=== PATIENT | male | born 1960 | race Caucasian/White ===

== ENCOUNTER 2017-02-22 11:35 | Inpatient (IN) | payer OTHER ==
[~2017-02-22] VITALS: Ht 162.6 cm; Wt 88.3 kg
[2017-02-22] VITALS (9 sets, daily range): BP systolic 102–115; BP diastolic 56–62; PULSE 65–75; RESP 16–20; TEMP 97.8–98.4; O2SAT 97–100
[~2017-02-22 11:35] MED LIST: ALPR.25 PO; ATOR10 PO; FURO20 PO; LORTA5 PO; MAGN400 PO; OMEP20TA39 PO; SPIR50 PO; TAB-TAB PO
[2017-02-22] MEDS ORDERED: SPIR50TA PO (11:59)
[2017-02-22] MEDS ORDERED: VITA500T49 PO (11:59)
[2017-02-22] MEDS ORDERED: HYDR-3516 PO (11:59)
[2017-02-22] MEDS ORDERED: POTA595T PO (11:59)
[2017-02-22] MEDS ORDERED: POTA10TA8 PO (11:59)
[2017-02-22] MEDS ORDERED: LACT10SO PO (11:59)
[2017-02-22] MEDS ORDERED: PROP10TA6 PO (11:59)
[2017-02-22] MEDS ORDERED: TEMA15CA PO (11:59)
[2017-02-22] MEDS ORDERED: MULTTAB67 PO (11:59)
[2017-02-22] MEDS ORDERED: OMEP40CA2 PO (11:59)
[2017-02-22] MEDS ORDERED: FURO1TAB60 PO (11:59)
[2017-02-22 12:27] LABS: BASOPHIL # 0.1 TH/MM3 (0-0.2); BASOPHIL % 1.1 % (0.0-2.0); EOSINOPHIL # 0.1 TH/MM3 (0-0.4); EOSINOPHIL % 2.6 % (0.0-4.0); HEMATOCRIT 23.4 % (39.0-51.0); LYMPHOCYTE # 1.4 TH/MM3 (1.0-4.8); MEAN CELL VOLUME 65.5 FL (80.0-100.0); MEAN CORPUSCULAR HEMOGLOBIN 20.1 PG (27.0-34.0); MEAN CORPUSCULAR HGB CONC 30.8 % (32.0-36.0); MONO % 10.6 % (0.0-8.0); NEUT % 58.7 % (16.0-70.0); PLATELET COUNT 137 TH/MM3 (150-450); RED BLOOD COUNT 3.57 MIL/MM3 (4.50-5.90); RED CELL DISTRIBUTION WIDTH 20.5 % (11.6-17.2); WHITE BLOOD COUNT 5.1 TH/MM3 (4.0-11.0)
[2017-02-22 12:28] LABS: HEMO FLAGS AUTO DIFF
[2017-02-22 12:29] LABS: INTERNATIONAL NORMALIZED RATIO 1.1 RATIO; PROTHROMBIN TIME - PATIENT 12.5 SEC (9.8-11.6)
[2017-02-22 12:42] LABS: ANION GAP 11 MEQ/L (5-15); AST (GOT) 29 U/L (15-37); BICARBONATE 20.7 MEQ/L (21.0-32.0); BLOOD UREA NITROGEN 45 MG/DL (7-18); CHLORIDE 104 MEQ/L (98-107); GLOMERULAR FILTRATION RATE 39 ML/MIN (>89); MAGNESIUM 2.3 MG/DL (1.5-2.5); POTASSIUM 4.4 MEQ/L (3.5-5.1); SODIUM (NA) 136 MEQ/L (136-145)
--- NOTE | 2017-02-22 12:45 | PD ---
HPI Chief Complaint: Altered Mental Status Time Seen by Provider: 12:40 Travel History International Travel<30 days: No Contact w/Intl Traveler<30days: No Traveled to known affect area: No History of Present Illness HPI 56-year-old male that presents to the ED for evaluation of confusion. Per significant other patient has been confused since yesterday. Per significant other patient yesterday was complaining of not feeling well and having some chest discomfort in the morning and then when she came back from work he appeared to be more confused and not acting himself. Patient has a history of cirrhosis as well as coronary disease with CABG. Patient was with Dr. Jaramillo and had a stress test done last week and apparently he was supposed to follow up with him today for possible ischemic changes on the stress test. Patient today was too lethargic and confused. Patient apparently drove to see significant other on his on these and he seemed to be very confused. He has a history of cirrhosis and unclear if his been taking his lactulose. He denies any alcohol or smoking history. No chest pain today. Patient appears to be confused today and has not really good historian. Unclear what medications he is taking. He has no allergies to medication. He denies any pain today. No other medical problems. PFSH Past Medical History Autoimmune Disease: No Heart Rhythm Problems: No Cancer: No Cardiac Catheterization: No Cardiovascular Problems: Yes High Cholesterol: No Chest Pain: No Congestive Heart Failure: No Cirrhosis: Yes Diabetes: No Diminished Hearing: No Endocrine: No GERD: Yes Genitourinary: No Immune Disorder: No Medical other: Yes Musculoskeletal: No Neurologic: No Psychiatric: No Reproductive: No Respiratory: No Sickle Cell Disease: No Tetanus Vaccination: < 5 Years Influenza Vaccination: Yes Past Surgical History Abdominal Surgery: No AICD: No Arteriovenous Shunt: No Cardiac Surgery: Yes (CABG) Coronary Artery Bypass Graft: Yes (TRIPLE BYPASS) Ear Surgery: No Endocrine Surgery: No Eye Surgery: No Genitourinary Surgery: No Gynecologic Surgery: No Insulin Pump: No Joint Replacement: No Oral Surgery: No Pacemaker: No Thoracic Surgery: No Tonsillectomy: Yes Other Surgery: Yes Family History Family Myocardial Infarction: Yes (FATHER/BROTHER ) Social History Alcohol Use: No (QUIT) Tobacco Use: No (QUIT 2013) Substance Use: No Allergies-Medications (Allergen,Severity, Reaction): Coded Allergies: No Known Allergies (Unverified , 5//17) Reported Meds & Prescriptions Reported Meds & Active Scripts Active Reported Vitamin B12 (Cyanocobalamin) 500 Mcg Tab 3,000 Mcg PO DAILY Lactulose Liq (Lactulose) 10 Gm/15 Ml Soln 15 Ml PO BID PRN Spironolactone 50 Mg Tab 50 Mg PO DAILY Temazepam 15 Mg Cap 15 Mg PO HS PRN Potassium Chloride CR (Potassium Chloride) 10 Meq Tab 20 Meq PO DAILY Hydrocodone-Acetaminophen 5-325 mg Tab 1 Tab PO Q4H PRN Potassium Gluconate 595 Mg Tab 595 Tab PO DAILY NEB Multiple Vitamin 1 Tab 1 Tab PO DAILY Omeprazole 40 Mg Cap 40 Mg PO DAILY Propranolol (Propranolol HCl) 10 Mg Tab 10 Mg PO DAILY Lasix (Furosemide) 40 Mg Tab 40 Mg PO DAILY Review of Systems Except as stated in HPI: all other systems reviewed are Neg Physical Exam Narrative GENERAL: SKIN: Warm and dry. HEAD: Atraumatic. Normocephalic. EYES: Pupils equal and round. No scleral icterus. No injection or drainage. ENT: No nasal bleeding or discharge. Mucous membranes pink and moist. Tongue is midline. No uvula deviation. NECK: Trachea midline. No JVD. CARDIOVASCULAR: Regular rate and rhythm. No murmurs, S3, S4 RESPIRATORY: No accessory muscle use. Clear to auscultation. Breath sounds equal bilaterally. GASTROINTESTINAL: Abdomen soft, non-tender, nondistended. Hepatic and splenic margins not palpable. MUSCULOSKELETAL: Extremities without clubbing, cyanosis, or edema. No obvious deformities. Full range of motion of the upper and lower extremities bilaterally. 2+ pulses bilaterally. NEUROLOGICAL: Awake and alert. No obvious cranial nerve deficits. Motor grossly within normal limits. Five out of 5 muscle strength in the arms and legs. Normal speech. PSYCHIATRIC: Appropriate mood and affect; insight and judgment normal. Data Data Last Documented VS Vital Signs Date Time Temp Pulse Resp B/P Pulse Ox O2 Delivery O2 Flow Rate FiO2 02/22/17 11:46 63 17 100 02/22/17 11:38 98.4 115/57 Orders Electrocardiogram (02/22/17 ) Complete Blood Count With Diff (02/22/17 12:03) Comprehensive Metabolic Panel (02/22/17 12:03) Ckmb (Isoenzyme) Profile (02/22/17 12:03) Troponin I (02/22/17 12:03) B-Type Natriuretic Peptide (02/22/17 12:03) Prothrombin Time / Inr (Pt) (02/22/17 12:03) Act Partial Throm Time (Ptt) (02/22/17 12:03) Lipase (02/22/17 12:03) Urinalysis - C+S If Indicated (02/22/17 12:03) Magnesium (Mg) (02/22/17 12:03) Ammonia (02/22/17 12:03) Thyroid Stimulating Hormone (02/22/17 12:03) Chest, Single Ap (02/22/17 12:03) Ct Brain W/O Iv Contrast(Rout) (02/22/17 12:03) Iv Access Insert/Monitor (02/22/17 12:03) Ecg Monitoring (02/22/17 12:03) Oximetry (02/22/17 12:03) Drug Screen, Random Urine (02/22/17 12:03) Alcohol (Ethanol) (02/22/17 12:03) Salicylates (Aspirin) (02/22/17 12:03) Tylenol (Acetaminophen) (02/22/17 12:03) Sodium Chlor 0.9% 1000 Ml Inj (Ns 1000 M (02/22/17 12:48) CKMB (02/22/17 12:10) CKMB% (02/22/17 12:10) Type And Screen (02/22/17 13:37) Red Blood Cells (Rbc) (02/22/17 13:37) Blood Product Administration .UPON TRANSFUSION (02/22/17 13:37) Labs Laboratory Tests Test 02/22/17 02/22/17 12:10 13:00 White Blood Count 5.1 TH/MM3 Red Blood Count 3.57 MIL/MM3 Hemoglobin 7.2 GM/DL Hematocrit 23.4 % Mean Corpuscular Volume 65.5 FL Mean Corpuscular Hemoglobin 20.1 PG Mean Corpuscular Hemoglobin 30.8 % Concent Red Cell Distribution Width 20.5 % Platelet Count 137 TH/MM3 Mean Platelet Volume 8.8 FL Neutrophils (%) (Auto) 58.7 % Lymphocytes (%) (Auto) 27.0 % Monocytes (%) (Auto) 10.6 % Eosinophils (%) (Auto) 2.6 % Basophils (%) (Auto) 1.1 % Neutrophils # (Auto) 3.0 TH/MM3 Lymphocytes # (Auto) 1.4 TH/MM3 Monocytes # (Auto) 0.5 TH/MM3 Eosinophils # (Auto) 0.1 TH/MM3 Basophils # (Auto) 0.1 TH/MM3 CBC Comment AUTO DIFF Differential Comment AUTO DIFF CONFIRMED Target Cells 1+ Keratocytes OCC Prothrombin Time 12.5 SEC Prothromb Time International 1.1 RATIO Ratio Activated Partial 23.0 SEC Thromboplast Time Sodium Level 136 MEQ/L Potassium Level 4.4 MEQ/L Chloride Level 104 MEQ/L Carbon Dioxide Level 20.7 MEQ/L Anion Gap 11 MEQ/L Blood Urea Nitrogen 45 MG/DL Creatinine 1.80 MG/DL Estimat Glomerular Filtration 39 ML/MIN Rate Random Glucose 133 MG/DL Calcium Level 9.1 MG/DL Magnesium Level 2.3 MG/DL Total Bilirubin 0.9 MG/DL Aspartate Amino Transf 29 U/L (AST/SGOT) Alanine Aminotransferase 41 U/L (ALT/SGPT) Alkaline Phosphatase 56 U/L Ammonia 62 MCMOL/L Total Creatine Kinase 215 U/L Creatine Kinase MB 6.1 NG/ML Troponin I LESS THAN 0.02 NG/ML B-Type Natriuretic Peptide 65 PG/ML Total Protein 7.9 GM/DL Albumin 3.6 GM/DL Lipase 229 U/L Thyroid Stimulating Hormone 0.033 uIU/ML 3rd Gen Salicylates Level LESS THAN 1.7 MG/DL Acetaminophen Level LESS THAN 2.0 MCG/ML Ethyl Alcohol Level LESS THAN 3 MG/DL Urine Color LIGHT-YELLOW Urine Turbidity CLEAR Urine pH 6.5 Urine Specific [place] 1.007 Urine Protein NEG mg/dL Urine Glucose (UA) NEG mg/dL Urine Ketones NEG mg/dL Urine Occult Blood NEG Urine Nitrite NEG Urine Bilirubin NEG Urine Urobilinogen LESS THAN 2.0 MG/DL Urine Leukocyte Esterase NEG Urine WBC LESS THAN 1 /hpf Urine Squamous Epithelial <1 /hpf Cells Urine Hyaline Casts 2 /lpf Microscopic Urinalysis Comment CULT NOT INDICATED Urine Opiates Screen NEG Urine Barbiturates Screen NEG Urine Amphetamines Screen NEG Urine Benzodiazepines Screen NEG Urine Cocaine Screen NEG Urine Cannabinoids Screen NEG MDM Medical Decision Making Medical Screen Exam Complete: Yes Emergency Medical Condition: Yes Medical Record Reviewed: Yes Interpretation(s) CBC Diagram 02/22/17 12:10 BMP Diagram 02/22/17 12:10 LFTs WNL troponin and CKMB WNL TSh low Coags WNL Last Impressions Head CT 02/22/17 1203 Signed Impressions: Service Date/Time: Wednesday, February 22, 2017 13:25 - CONCLUSION: No acute disease. Rom Brennan MD Chest X-Ray 02/22/17 1203 Signed Impressions: Service Date/Time: Wednesday, February 22, 2017 12:43 - CONCLUSION: 1. Stable postoperative chest. There is decreasing effusion and consolidation compared to previous dated 01/18/15. Scott Meng MD ammonia in 60s EKG shows sinus rhythm with no sign of acute ischemia or arrhythmia read by me and attending. Differential Diagnosis altered mental status versus bradycardic hepatic encephalopathy versus anemia versus electrolyte allergy versus cirrhosis versus coronary artery disease Narrative Course 56-year-old male that presents to the ED for evaluation of altered mental status. Patient was properly examined and was found to have signs and symptoms consistent appears to be likely altered mental status. Possibly from hepatic sources. Labs and imaging ordered. Labs and imaging show what appears to be severe anemia with acute kidney injury. Also elevated ammonia. Case was discussed in my attending Dr. Granados for agrees to admission. Patient will be admitted to the hospitalist secondary to not requiring blood as well as IV fluids. Patient still confused. He does not know why he is here. Case was discussed with patient and family members who are in agreement with plan. Case was discussed with Dr. Handley who agrees to admission Procedures EKG Prior to Arrival: No HemaPrompt Point of Care Internal Pos. & Neg. Controls: Passed Fecal Specimen Occult Blood: Negative Diagnosis Primary Impression: Altered mental status Qualified Code: R41.82 - Altered mental status, unspecified altered mental status type Additional Impressions: Anemia Qualified Code: D64.9 - Anemia, unspecified type Acute kidney injury Admitting Information Admitting Physician Requests: Admit Deep Pang February 22, 2017 12:45
[2017-02-22] MEDS ORDERED: SODIUM CHLOR 0.9% 1000 ML INJ 1,000 ML IV SCH (12:48)
[2017-02-22 12:51] LABS: ACETAMINOPHEN LESS THAN 2.0 MCG/ML (10.0-30.0); ALKALINE PHOSPHATASE 56 U/L (45-117); ALT (GPT) 41 U/L (12-78); CREATINE KINASE 215 U/L (39-308); TOTAL BILIRUBIN ADULT 0.9 MG/DL (0.2-1.0)
[2017-02-22 12:53] LABS: KERATOCYTES OCC (NORMAL); TARGET CELLS 1+ (NORMAL)
[2017-02-22 12:54] LABS: SCAN/DIFF AUTO DIFF CONFIRMED
[2017-02-22 13:06] LABS: CKMB 6.1 NG/ML (0.5-3.6)
--- NOTE | 2017-02-22 13:31 | RADRPT ---
EXAM DATE/TIME: 02/22/2017 12:43 [facility] COMPARISON: CHEST SINGLE AP, January 18, 2015, 11:34. INDICATIONS : Short of breath and chest pain for 2 days. MEDICAL HISTORY : Cardiovascular disease. SURGICAL HISTORY : CABG. ENCOUNTER: Initial ACUITY: 2 days PAIN SCORE: 2/10 LOCATION: Bilateral chest FINDINGS: The patient is post thoracotomy on the left. There is blunting of the left costophrenic sulcus. There rib osteotomies on the left. The overall amount of fluid and consolidation at the left base has decr eased. The right lung is clear. The heart is normal in size. CONCLUSION: 1. Stable postoperative chest. There is decreasing effusion and consolidation compared to previous da randi 01/18/15. Scott Meng MD on February 22, 2017 at 13:28 Board Certified Radiologist. This report was verified electronically.
[2017-02-22 13:35] LABS: AMPHETAMINE, URINE NEG (NEG); BARBITURATES, URINE NEG (NEG); COCAINE, URINE NEG (NEG)
[2017-02-22 13:40] LABS: BLOOD, URINE NEG (NEG); GLUCOSE,URINE NEG (NEG); HYALINE CAST, URINE 2 /lpf (RARE); KETONE, URINE NEG (NEG); NITRITE,URINE NEG (NEG); PH, URINE 6.5 (5.0-8.5); SQUAMOUS EPITHELIAL CELL URINE <1 /hpf (0-5); URINE COLOR LIGHT-YELLOW (YELLW/STRAW)
--- NOTE | 2017-02-22 13:40 | RADRPT ---
EXAM DATE/TIME: 02/22/2017 13:25 [facility] COMPARISON: CT BRAIN W/O CONTRAST, December 19, 2014, 14:01. INDICATIONS : Confusion. RADIATION DOSE: 35.43 CTDIvol (mGy) MEDICAL HISTORY : Cardiovascular disease. Cirrhosis. SURGICAL HISTORY : CABG ENCOUNTER: Initial ACUITY: 1 day PAIN SCALE: 0/10 LOCATION: cranial TECHNIQUE: Multiple contiguous axial images were obtained of the head. Using automated exposure control and adj ustment of the mA and/or kV according to patient size, radiation dose was kept as low as reasonably a chievable to obtain optimal diagnostic quality images. FINDINGS: CEREBRUM: The ventricles are normal for age. No evidence of midline shift, mass lesion, hemorrhage or acute in farction. No extra-axial fluid collections are seen. POSTERIOR FOSSA: The cerebellum and brainstem are intact. The 4th ventricle is midline. The cerebellopontine angle i s unremarkable. EXTRACRANIAL: The visualized portion of the orbits is intact. SKULL: The calvaria is intact. No evidence of skull fracture. CONCLUSION: No acute disease. Rom Brennan MD on February 22, 2017 at 13:37 Board Certified Radiologist. This report was verified electronically.
[2017-02-22 13:45] LABS: COMMENT (UR) CULT NOT INDICATED; CULTURE IF INDICATED CULT NOT INDICATED
[2017-02-22] MEDS: SODIUM CHLOR 0.9% 1000 ML INJ 1,000 ML IV SCH (16:39)
--- NOTE | 2017-02-22 17:37 | HHI.HP ---
[facility] Service [facility] Phillip Oliver MD Admission Diagnosis altered mental status, symptomatic anemia, acute kindey injury Diagnoses: Chief Complaint: confusion, fatigue (Stephanie GrantHussain LINDA) Travel History International Travel<30 Days: No Contact w/Intl Traveler <30 Da: No Traveled to Known Affected Are: No (Stephanie GrantHussain MCKEON) History of Present Illness This is a 56-year-old male with significant past medical history of alcoholic liver cirrhosis, varices, GI bleed, CAD. Prior admission in 2014 for GI bleed where he underwent EGD with banding and blood transfusion. At that time, patient had a prolonged hospitalization was complicated by cardiorespiratory arrest was intubated. Patient was found with hemothorax and mediastinal shift require chest tube insertions and subsequent thoracotomy and VATS procedure. According to the patient's , he had been doing relatively well. Has not had any recent hospitalizations since 2014. In 2016 he had EGD with banding as outpatient. He follows up regularly with Dr. Gotti. Patient is altered, unable to provide history. is at bedside providing details. According to the , yesterday patient was complaining of not feeling well however he was unable to pinpoint. 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 According to the , he showed up at her office wearing his pajamas and was not acting like himself. He actually drove himself to her office. She contacted Dr. Goodson's office and appointment was canceled. decided to bring him in for further evaluation. Per , patient quit drinking 3 years ago. She is not clear whether he's been taking his lactulose. Patient denies any chest pain, no shortness of breath. He knows the name of the hospital and year however he is continually asking if he needs to remain in the hospital. He admits feeling tired, no chest pain or shortness of breath. According to the , cardiology did a stress test a week ago and he was supposed to have a follow-up as the findings were abnormal. I did speak to Dr. Jaramillo and believes that the stress test findings were okay. Patient was evaluated in the emergency room, laboratory workup was completed. CBC was remarkable for anemia, hemoglobin 7.2, hematocrit 23.4, platelets 137. Urinalysis was clean. AST was 29, ALT 41. Ammonia level was elevated 62. BMP was remarkable for elevated BUN and creatinine, BUN 1.8, creatinine 29. He does have a history of prior acute kidney injury in 2014 when he was critically ill. CT of the head was negative. Chest x-ray did not reveal any acute findings. Patient is hemodynamically stable, denies any abdominal pain. Has not noticed black or bloody stools. No hematemesis. He is pleasant and cooperative however confused. Patient is admitted for further evaluation and treatment. (Stephanie Grant) Review of Systems ROS Limitations: Poor Historian Constitutional: COMPLAINS OF: Fatigue (Stephanie Grant) Past Family Social History Past Medical History Cirrhosis Prior EtOH abuse Previous blood transfusions Thrombocytopenia Coagulopathy CAD Admitted in 2014 for syncope and fall, found severely anemic, underwent EGD with banding. Postprocedure, patient went into cardiorespiratory arrest and was intubated. Patient was found with hemothorax with mediastinal shift require chest tube insertion and subsequent thoracotomy and evacuation, repeat VATS, thoracotomy, pleurodesis on 12/29/2014 Past Surgical History Chest tube insertion Left thoracotomy November 2014 s/p thoracotomy and evacuation, repeat VATS, thoracotomy, pleurodesis on 12/29 CABG x3 2013 EGD with banding 2014 Reported Medications Reported Meds & Active Scripts Active Reported Vitamin B12 (Cyanocobalamin) 500 Mcg Tab 3,000 Mcg PO DAILY Lactulose Liq (Lactulose) 10 Gm/15 Ml Soln 15 Ml PO BID PRN Spironolactone 50 Mg Tab 50 Mg PO DAILY Temazepam 15 Mg Cap 15 Mg PO HS PRN Potassium Chloride CR (Potassium Chloride) 10 Meq Tab 20 Meq PO DAILY Hydrocodone-Acetaminophen 5-325 mg Tab 1 Tab PO Q4H PRN Potassium Gluconate 595 Mg Tab 595 Tab PO DAILY NEB Multiple Vitamin 1 Tab 1 Tab PO DAILY Omeprazole 40 Mg Cap 40 Mg PO DAILY Propranolol (Propranolol HCl) 10 Mg Tab 10 Mg PO DAILY Lasix (Furosemide) 40 Mg Tab 40 Mg PO DAILY (Stephanie Grant) Allergies: Coded Allergies: No Known Allergies (Unverified , 02/22/17) Active Ordered Medications Inpatient Medications Lactulose (Lactulose Liq) 30 ml TID PO ; Start 02/22/17 at 18:00 Pantoprazole Sodium (Protonix) 40 mg DAILY PO ; Start 02/23/17 at 09:00 Propranolol HCl (Inderal) 10 mg DAILY PO ; Start 02/23/17 at 09:00 Rifaximin 550 mg 550 mg BID PO ; Start 02/22/17 at 21:00 Sodium Chloride (NS 1000 ml Inj) 1,000 ml @ 84 mls/hr [id number] IV Last administered on 02/22/17t 16:39; Start 02/22/17 at 16:00 Spironolactone (Aldactone) 50 mg DAILY PO ; Start 02/23/17 at 09:00 Family History Father and brother positive for CAD and CO Social History , now retired. Quit drinking 3 years ago. Quit smoking 2013. No illegal drug use. (Stephanie Grant) Physical Exam Vital Signs Vital Signs Date Time Temp Pulse Resp B/P Pulse Ox O2 Delivery O2 Flow Rate FiO2 02/22/17 16:40 74 16 110/57 98 Room Air 02/22/17 15:39 98.0 71 16 105/60 99 Room Air 02/22/17 15:24 97.8 70 16 104/56 98 Room Air 02/22/17 14:37 98.0 68 17 102/62 99 Room Air 02/22/17 12:05 16 98 02/22/17 11:46 63 17 100 02/22/17 11:38 98.4 65 18 115/57 98 Physical Exam GENERAL: This is a well developed, moderately obese male. SKIN: Pale, cool and dry. HEAD: Atraumatic. Normocephalic. No temporal or scalp tenderness. EYES: Pupils equal round and reactive. Extraocular motions intact. No scleral icterus. No injection or drainage. ENT: Nose without bleeding, purulent drainage or septal hematoma. Throat without erythema, tonsillar hypertrophy or exudate. Uvula midline. Airway patent. NECK: Trachea midline. No JVD or lymphadenopathy. Supple, nontender, no meningeal signs. CARDIOVASCULAR: Regular rate and rhythm without murmurs, gallops, or rubs. RESPIRATORY: Clear to auscultation. Breath sounds equal bilaterally. No wheezes , rales, or rhonchi. Left lateral chest wall with scar from previous surgery. GASTROINTESTINAL: Abdomen bulky, soft nontender, slightly distended. Bowel sounds normoactive 4. MUSCULOSKELETAL: Extremities without clubbing, cyanosis, or edema. No joint tenderness, effusion, or edema noted. No calf tenderness. Negative Homans sign bilaterally. NEUROLOGICAL: Awake, oriented to place, year, unable to provide details. No focal deficits noted. Laboratory Laboratory Tests Test 02/22/17 02/22/17 12:10 13:00 White Blood Count 5.1 Red Blood Count 3.57 Hemoglobin 7.2 Hematocrit 23.4 Mean Corpuscular Volume 65.5 Mean Corpuscular Hemoglobin 20.1 Mean Corpuscular Hemoglobin 30.8 Concent Red Cell Distribution Width 20.5 Platelet Count 137 Mean Platelet Volume 8.8 Neutrophils (%) (Auto) 58.7 Lymphocytes (%) (Auto) 27.0 Monocytes (%) (Auto) 10.6 Eosinophils (%) (Auto) 2.6 Basophils (%) (Auto) 1.1 Neutrophils # (Auto) 3.0 Lymphocytes # (Auto) 1.4 Monocytes # (Auto) 0.5 Eosinophils # (Auto) 0.1 Basophils # (Auto) 0.1 CBC Comment AUTO DIFF Differential Comment AUTO DIFF CONFIRMED Target Cells 1+ Keratocytes OCC Prothrombin Time 12.5 Prothromb Time International 1.1 Ratio Activated Partial 23.0 Thromboplast Time Sodium Level 136 Potassium Level 4.4 Chloride Level 104 Carbon Dioxide Level 20.7 Anion Gap 11 Blood Urea Nitrogen 45 Creatinine 1.80 Estimat Glomerular Filtration 39 Rate Random Glucose 133 Calcium Level 9.1 Magnesium Level 2.3 Total Bilirubin 0.9 Aspartate Amino Transf 29 (AST/SGOT) Alanine Aminotransferase 41 (ALT/SGPT) Alkaline Phosphatase 56 Ammonia 62 Total Creatine Kinase 215 Creatine Kinase MB 6.1 Troponin I LESS THAN 0.02 B-Type Natriuretic Peptide 65 Total Protein 7.9 Albumin 3.6 Lipase 229 Thyroid Stimulating Hormone 0.033 3rd Gen Salicylates Level LESS THAN 1.7 Acetaminophen Level LESS THAN 2.0 Ethyl Alcohol Level LESS THAN 3 Urine Color LIGHT-YELLOW Urine Turbidity CLEAR Urine pH 6.5 Urine Specific [place] 1.007 Urine Protein NEG Urine Glucose (UA) NEG Urine Ketones NEG Urine Occult Blood NEG Urine Nitrite NEG Urine Bilirubin NEG Urine Urobilinogen LESS THAN 2.0 Urine Leukocyte Esterase NEG Urine WBC LESS THAN 1 Urine Squamous Epithelial <1 Cells Urine Hyaline Casts 2 Microscopic Urinalysis Comment CULT NOT INDICATED Urine Opiates Screen NEG Urine Barbiturates Screen NEG Urine Amphetamines Screen NEG Urine Benzodiazepines Screen NEG Urine Cocaine Screen NEG Urine Cannabinoids Screen NEG Blood Type A POSITIVE Antibody Screen NEGATIVE Crossmatch Leukocyte-Reduced Red Blood Cells Blood Bank Comment (Stephanie Grant) Result Diagram: 02/22/17 1210 02/22/17 1210 Imaging Last Impressions Head CT 02/22/17 1203 Signed Impressions: Service Date/Time: Wednesday, February 22, 2017 13:25 - CONCLUSION: No acute disease. Rom Brennan MD Chest X-Ray 02/22/17 1203 Signed Impressions: Service Date/Time: Wednesday, February 22, 2017 12:43 - CONCLUSION: 1. Stable postoperative chest. There is decreasing effusion and consolidation compared to previous dated 01/18/15. Scott Meng MD (Stephanie Grant) Assessment and Plan Problem List: (1) Altered mental status (2) Hepatic encephalopathy (3) Anemia (4) Acute kidney injury (5) CAD (coronary artery disease) (6) Thrombocytopenia (7) Cirrhosis Assessment and Plan Admit to Dr. Handley 56-year-old male with history of prior alcohol abuse, alcoholic cirrhosis with previous GI bleed and upper endoscopy with variceal banding. Presented to the emergency room with increased confusion, complain of fatigue. Was noted with elevated ammonia level and hemoglobin of 7.2, hematocrit 23.4. Symptomatic anemia, etiology unclear, prior history of GI bleed with varices. -Consult GI for evaluation Transfuse 1 units of packed cells, follow up H&H -Protonix 40 mg by mouth daily Altered mental status, with hepatic encephalopathy, elevated ammonia level of 62. Liver cirrhosis, prior history of alcohol abuse. Blood alcohol level was negative. Quit drinking 3 years ago. Possible noncompliance. -Continue lactulose Follow ammonia level in the morning Rifaximin 550 mg by mouth twice a day -Continue with Aldactone 50 milkers by mouth daily -Continue with propanolol 10 mg by mouth daily Acute kidney injury -Continue with cautious hydration Follow BMP in the morning Thrombocytopenia, likely secondary to liver disease Avoid any anticoagulants Monitor her platelets Monitor for bleeding Coronary artery disease and prior CABG. Had recent stress test, results are unknown. Patient denies any chest pain, no shortness of breath. Continue to monitor Continuous cardiac telemetry -Continue with medical management Depressed TSH We'll check total T3 and free T4 Home medications reviewed, initiated as indicated SCDs for DVT prophylaxis, avoid anticoagulation due anemia, thrombocytopenia Protonix for GI prophylaxis Plan of care has been discussed with the patient and his , RN and attending. Further management of the patient will be dependent on the hospital course This patient was seen by myself and Dr. Handley, this H&P is written on his behalf (Stephanie Grant) Assessment and Plan pt is seen & examined around 6pm d/w PT & his at bedside d/w Stephanie torres w above see Orders will f/u (Sheldon Handley MD) Physician Certification 2 Midnight Certification Type: Admission for Inpatient Services Order for Inpatient Services The services are ordered in accordance with Medicare regulations or non- Medicare payer requirements, as applicable. In the case of services not specified as inpatient-only, they are appropriately provided as inpatient services in accordance with the 2-midnight benchmark. Estimated LOS (days): 2 2 days is the estimated time the patient will need to remain in the hospital, assuming treatment plan goals are met and no additional complications. Post-Hospital Plan: Not yet determined (Stephanie Grant) Problem Qualifiers (1) Altered mental status: Qualified Code: R41.82 - Altered mental status, unspecified altered mental status type (2) Anemia: Qualified Code: D64.9 - Anemia, unspecified type (3) CAD (coronary artery disease): Qualified Code: I25.10 - Coronary artery disease involving [place] coronary artery of [place] heart without angina pectoris (4) Cirrhosis: Stephanie Grant February 22, 2017 17:37 Sheldon Handley MD February 22, 2017 23:15
[2017-02-22] MEDS: LACTULOSE SYRUP 20 GM/30 ML CUP PO SCH (18:00)
[2017-02-22] MEDS: RIFAXIMIN 550 MG TAB PO SCH (21:50)
[2017-02-23] VITALS (8 sets, daily range): BP systolic 102–131; BP diastolic 57–69; PULSE 61–75; RESP 16–20; TEMP 97.2–98.2; O2SAT 97–100
[2017-02-23] MEDS: SODIUM CHLOR 0.9% 1000 ML INJ 1,000 ML IV SCH ×2 (03:55→19:02)
[2017-02-23 06:20] LABS: HEMATOCRIT 21.2 % (39.0-51.0); MEAN CELL VOLUME 66.7 FL (80.0-100.0); MEAN CORPUSCULAR HEMOGLOBIN 21.4 PG (27.0-34.0); MEAN CORPUSCULAR HGB CONC 32.1 % (32.0-36.0); PLATELET COUNT 102 TH/MM3 (150-450); RED BLOOD COUNT 3.18 MIL/MM3 (4.50-5.90); RED CELL DISTRIBUTION WIDTH 21.6 % (11.6-17.2); WHITE BLOOD COUNT 4.5 TH/MM3 (4.0-11.0)
[2017-02-23 06:35] LABS: REVIEW FLAG FINAL
[2017-02-23 07:00] LABS: BICARBONATE 20.9 MEQ/L (21.0-32.0); FREE T4 0.77 NG/DL (0.76-1.46); POTASSIUM 4.1 MEQ/L (3.5-5.1)
[2017-02-23] MEDS ORDERED: SODIUM CHLOR 0.9% 250 ML INJ 250 ML IV ONE (08:00)
[2017-02-23] MEDS ORDERED: FUROSEMIDE 20 MG/2 ML VIAL IV SCH (08:00)
[2017-02-23] MEDS ORDERED: NON-FORMULARY DRUG (Omeprazole 40 MG) PO SCH (09:00)
[2017-02-23] MEDS ORDERED: PANTOPRAZOLE SOD 40 MG DELAYED RELEASE TAB PO SCH (09:00)
[2017-02-23] MEDS: PANTOPRAZOLE SOD 40 MG DELAYED RELEASE TAB PO SCH (10:23)
[2017-02-23] MEDS: PROPRANOLOL HCL 10 MG TAB PO SCH (10:24)
[2017-02-23] MEDS: LACTULOSE SYRUP 20 GM/30 ML CUP PO SCH ×3 (10:24→16:52)
[2017-02-23] MEDS: RIFAXIMIN 550 MG TAB PO SCH ×2 (10:24→20:17)
[2017-02-23] MEDS: SPIRONOLACTONE 50 MG TAB PO SCH (10:24)
--- NOTE | 2017-02-23 11:12 | HHI.PR ---
Subjective Remarks alert, awake, oriented to year, place, still not clear why he was brought in "I was confused" asking when he is going no cp no sob tolerating liquids okay, no n/v no fever no other family at bsd Objective Objective Results - Vital Signs Date Time Temp Pulse Resp B/P Pulse Ox O2 Delivery O2 Flow Rate FiO2 02/23/17 08:00 98.0 68 20 110/66 99 02/23/17 04:40 97.8 70 16 104/63 97 02/22/17 22:00 75 02/22/17 21:15 98.3 66 16 112/61 97 02/22/17 19:45 74 20 100 02/22/17 16:40 74 16 110/57 98 Room Air 02/22/17 15:39 98.0 71 16 105/60 99 Room Air 02/22/17 15:24 97.8 70 16 104/56 98 Room Air 02/22/17 14:37 98.0 68 17 102/62 99 Room Air 02/22/17 12:05 16 98 02/22/17 11:46 63 17 100 02/22/17 11:38 98.4 65 18 115/57 98 I/O 02/22/17 02/22/17 02/22/17 02/23/17 02/23/17 02/23/17 06:59 14:59 22:59 06:59 14:59 22:59 Intake Total 1707 ml Output Total 800 ml Balance 907 ml Intake Oral 480 ml IV Total 1227 ml Output Urine Total 800 ml # Bowel Movements 0 Result Diagram: 02/23/17 0602/23/17 06 Imaging Last Impressions Head CT 02/22/17 1203 Signed Impressions: Service Date/Time: Wednesday, February 22, 2017 13:25 - CONCLUSION: No acute disease. Rom Brennan MD Chest X-Ray 02/22/17 1203 Signed Impressions: Service Date/Time: Wednesday, February 22, 2017 12:43 - CONCLUSION: 1. Stable postoperative chest. There is decreasing effusion and consolidation compared to previous dated 01/18/15. Scott Meng MD Other Results Laboratory Tests Test 02/22/17 02/22/17 02/23/17 02/23/17 12:10 13:00 06:05 07:48 White Blood Count 5.1 4.5 Red Blood Count 3.57 3.18 Hemoglobin 7.2 6.8 Hematocrit 23.4 21.2 Mean Corpuscular Volume 65.5 66.7 Mean Corpuscular Hemoglobin 20.1 21.4 Mean Corpuscular Hemoglobin 30.8 32.1 Concent Red Cell Distribution Width 20.5 21.6 Platelet Count 137 102 Mean Platelet Volume 8.8 8.4 Neutrophils (%) (Auto) 58.7 Lymphocytes (%) (Auto) 27.0 Monocytes (%) (Auto) 10.6 Eosinophils (%) (Auto) 2.6 Basophils (%) (Auto) 1.1 Neutrophils # (Auto) 3.0 Lymphocytes # (Auto) 1.4 Monocytes # (Auto) 0.5 Eosinophils # (Auto) 0.1 Basophils # (Auto) 0.1 CBC Comment AUTO DIFF Differential Comment AUTO DIFF CONFIRMED Target Cells 1+ Keratocytes OCC Prothrombin Time 12.5 Prothromb Time International 1.1 Ratio Activated Partial 23.0 Thromboplast Time Sodium Level 136 139 Potassium Level 4.4 4.1 Chloride Level 104 110 Carbon Dioxide Level 20.7 20.9 Anion Gap 11 8 Blood Urea Nitrogen 45 32 Creatinine 1.80 1.21 Estimat Glomerular Filtration 39 62 Rate Random Glucose 133 99 Calcium Level 9.1 8.3 Magnesium Level 2.3 Total Bilirubin 0.9 Aspartate Amino Transf 29 (AST/SGOT) Alanine Aminotransferase 41 (ALT/SGPT) Alkaline Phosphatase 56 Ammonia 62 91 Total Creatine Kinase 215 Creatine Kinase MB 6.1 Troponin I LESS THAN 0.02 B-Type Natriuretic Peptide 65 Total Protein 7.9 Albumin 3.6 Lipase 229 Thyroid Stimulating Hormone 0.033 3rd Gen Salicylates Level LESS THAN 1.7 Acetaminophen Level LESS THAN 2.0 Ethyl Alcohol Level LESS THAN 3 Urine Color LIGHT-YELLOW Urine Turbidity CLEAR Urine pH 6.5 Urine Specific [place] 1.007 Urine Protein NEG Urine Glucose (UA) NEG Urine Ketones NEG Urine Occult Blood NEG Urine Nitrite NEG Urine Bilirubin NEG Urine Urobilinogen LESS THAN 2.0 Urine Leukocyte Esterase NEG Urine WBC LESS THAN 1 Urine Squamous Epithelial <1 Cells Urine Hyaline Casts 2 Microscopic Urinalysis Comment CULT NOT INDICATED Urine Opiates Screen NEG Urine Barbiturates Screen NEG Urine Amphetamines Screen NEG Urine Benzodiazepines Screen NEG Urine Cocaine Screen NEG Urine Cannabinoids Screen NEG Blood Type A POSITIVE A POSITIVE Antibody Screen NEGATIVE Crossmatch Leukocyte-Reduced Leukocyte-Reduced Red Blood Red Blood Cells Cells Blood Bank Comment Free Thyroxine 0.77 Total Triiodothyronine 116 ROS General: Other (poor historian) Neuro/MS: Confusion Physical Exam Physical Exam GENERAL: This is a well developed, moderately obese male. SKIN: Pale, cool and dry. HEAD: Atraumatic. Normocephalic. No temporal or scalp tenderness. EYES: Pupils equal round and reactive. Extraocular motions intact. No scleral icterus. No injection or drainage. ENT: Nose without bleeding, purulent drainage or septal hematoma. Throat without erythema, tonsillar hypertrophy or exudate. Uvula midline. Airway patent. NECK: Trachea midline. No JVD or lymphadenopathy. Supple, nontender, no meningeal signs. CARDIOVASCULAR: Regular rate and rhythm without murmurs, gallops, or rubs. RESPIRATORY: Clear to auscultation. Breath sounds equal bilaterally. No wheezes , rales, or rhonchi. Left lateral chest wall with scar from previous surgery. GASTROINTESTINAL: Abdomen bulky, soft nontender, slightly distended. Bowel sounds normoactive 4. MUSCULOSKELETAL: Extremities without clubbing, cyanosis, or edema. No joint tenderness, effusion, or edema noted. No calf tenderness. Negative Homans sign bilaterally. NEUROLOGICAL: Awake, oriented to place, year, unable to provide details. No focal deficits noted. A/P Diagnosis: (1) Altered mental status (2) Hepatic encephalopathy (3) Anemia (4) Acute kidney injury (5) CAD (coronary artery disease) (6) Thrombocytopenia (7) Cirrhosis Assessment and Plan 56-year-old male with history of prior alcohol abuse, alcoholic cirrhosis with previous GI bleed and upper endoscopy with variceal banding. Presented to the emergency room with increased confusion, complain of fatigue. Was noted with elevated ammonia level and hemoglobin of 7.2, hematocrit 23.4. Symptomatic anemia, etiology unclear, prior history of GI bleed with varices. -Consult GI for evaluation-pending -1 unit PRBC 5/3, Hgb today 6.3 give 2 more units. Follow up HH -Protonix 40 mg by mouth daily Altered mental status, with hepatic encephalopathy, elevated ammonia level of 62. Liver cirrhosis, prior history of alcohol abuse. Blood alcohol level was negative. Quit drinking 3 years ago. Possible noncompliance. -Continue lactulose ammonia level 91, repeat ammonia level in am Rifaximin 550 mg by mouth twice a day -Continue with Aldactone 50 milkers by mouth daily -Continue with propanolol 10 mg by mouth daily -improved mentation Acute kidney injury-improving -Continue with cautious hydration Follow BMP in the morning Thrombocytopenia, likely secondary to liver disease Avoid any anticoagulants -plat continue to trend down, today 102 -monitor for bleeding Coronary artery disease and prior CABG. Had recent stress test, results are unknown. Patient denies any chest pain, no shortness of breath. Continue to monitor Continuous cardiac telemetry -Continue with medical management Depressed TSH ok total T3 and free T4 SCDs for DVT prophylaxis, avoid anticoagulation due anemia, thrombocytopenia Protonix for GI prophylaxis Repeat labs in am further recommendations per GI D/W RN D/W Dr. Handley D/W pt. This patient was seen by myself and Dr. Handley, this note is written on his behalf Problem Qualifiers (1) Altered mental status: Qualified Code: R41.82 - Altered mental status, unspecified altered mental status type (2) Anemia: Qualified Code: D64.9 - Anemia, unspecified type (3) CAD (coronary artery disease): Qualified Code: I25.10 - Coronary artery disease involving [place] coronary artery of [place] heart without angina pectoris (4) Cirrhosis: Stephanie Grant February 23, 2017 11:12
--- NOTE | 2017-02-23 12:12 | PD.CONS ---
HPI History of Present Illness This is a 56 year old [gentleman] who came to the hospital after he got confused and "was short on blood" 2 d ago. Hgb was 6.8 and ammonia was 91, now down to 62. He feels better since getting blood in the hospital. Denies n/v, abdominal pain, change in bowel habits, diarrhea, blood in stool, tarry stools. Denies ever having GIB, EGD, or colonoscopy, but per EMR he had EGD 12/16/14--- >found esophageal varices with stigmata of recent bleeding, s/p banding times 3 , gastritis. EGD 03/16/16 ---> gastritis, esophageal varices were banded. He does admit to hx cirrhosis and past heavy drinking. He says he is supposed to take lactulose but he has not been taking it lately (Kalyani Wilkinson) PFSH Past Medical History cirrhosis hx GIB, varices CVD Past Surgical History CABG (Kalyani Wilkinson) Coded Allergies: No Known Allergies (Unverified , 02/22/17) Medications Current Medications Medications (Trade) Dose Ordered Sig/Roe Route PRN Reason Start Time Stop Time Status Last Admin Dose Admin Propranolol HCl (Inderal) 10 mg DAILY PO 02/23/17 09:00 02/23/17 10:24 Spironolactone (Aldactone) 50 mg DAILY PO 02/23/17 09:00 02/23/17 10:24 Pantoprazole Sodium (Protonix) 40 mg DAILY PO 02/23/17 09:00 02/23/17 10:23 Lactulose (Lactulose Liq) 30 ml TID PO 02/22/17 18:00 02/23/17 10:24 Rifaximin 550 mg 550 mg BID PO 02/22/17 21:00 02/23/17 10:24 Sodium Chloride 1,000 ml @ 50 mls/hr Q20H IV 02/22/17 16:00 02/22/17 16:39 Sodium Chloride (NS 250 ml Inj) 250 ml @ 15 mls/hr ONCE ONCE IV 02/23/17 08:00 02/24/17 00:39 Family History CVA - sister Social History not ETOH currently, quit 3 y ago and was previously heavy drinker quit smoking cigarrets 3 y ago no illegal drugs (Kalyani Wilkinson) Review of Systems Constitutional: DENIES: Fever Eyes: DENIES: Blurred vision Ears, nose, mouth, throat: DENIES: Hearing loss Respiratory: DENIES: Cough Cardiovascular: DENIES: Chest pain Gastrointestinal: DENIES: Abdominal pain, Black stools, Bloody stools, Constipation, Diarrhea, Nausea, Vomiting, Swelling of Abdomen Musculoskeletal: DENIES: Joint pain Integumentary: DENIES: Abnormal pigmentation Hematologic/lymphatic: DENIES: Bruising Neurologic: DENIES: Abnormal gait (Kalyani Wilkinson) GI Exam Vitals I&O Vital Signs Date Time Temp Pulse Resp B/P Pulse Ox O2 Delivery O2 Flow Rate FiO2 02/23/17 08:00 98.0 68 20 110/66 99 02/23/17 04:40 97.8 70 16 104/63 97 02/22/17 22:00 75 02/22/17 21:15 98.3 66 16 112/61 97 02/22/17 19:45 74 20 100 02/22/17 16:40 74 16 110/57 98 Room Air 02/22/17 15:39 98.0 71 16 105/60 99 Room Air 02/22/17 15:24 97.8 70 16 104/56 98 Room Air 02/22/17 14:37 98.0 68 17 102/62 99 Room Air 02/22/17 12:05 16 98 I/O 02/22/17 02/22/17 02/22/17 02/23/17 02/23/17 02/23/17 07:00 15:00 23:00 07:00 15:00 23:00 Intake Total 1707 ml Output Total 800 ml Balance 907 ml Intake Oral 480 ml IV Total 1227 ml Output Urine Total 800 ml # Bowel Movements 0 Laboratory Test 02/22/17 02/22/17 02/23/17 02/23/17 12:10 13:00 06:05 07:48 White Blood Count 5.1 TH/MM3 4.5 TH/MM3 Red Blood Count 3.57 MIL/MM3 3.18 MIL/MM3 Hemoglobin 7.2 GM/DL 6.8 GM/DL Hematocrit 23.4 % 21.2 % Mean Corpuscular Volume 65.5 FL 66.7 FL Mean Corpuscular Hemoglobin 20.1 PG 21.4 PG Mean Corpuscular Hemoglobin 30.8 % 32.1 % Concent Red Cell Distribution Width 20.5 % 21.6 % Platelet Count 137 TH/MM3 102 TH/MM3 Mean Platelet Volume 8.8 FL 8.4 FL Neutrophils (%) (Auto) 58.7 % Lymphocytes (%) (Auto) 27.0 % Monocytes (%) (Auto) 10.6 % Eosinophils (%) (Auto) 2.6 % Basophils (%) (Auto) 1.1 % Neutrophils # (Auto) 3.0 TH/MM3 Lymphocytes # (Auto) 1.4 TH/MM3 Monocytes # (Auto) 0.5 TH/MM3 Eosinophils # (Auto) 0.1 TH/MM3 Basophils # (Auto) 0.1 TH/MM3 CBC Comment AUTO DIFF Differential Comment AUTO DIFF CONFIRMED Target Cells 1+ Keratocytes OCC Prothrombin Time 12.5 SEC Prothromb Time International 1.1 RATIO Ratio Activated Partial 23.0 SEC Thromboplast Time Sodium Level 136 MEQ/L 139 MEQ/L Potassium Level 4.4 MEQ/L 4.1 MEQ/L Chloride Level 104 MEQ/L 110 MEQ/L Carbon Dioxide Level 20.7 MEQ/L 20.9 MEQ/L Anion Gap 11 MEQ/L 8 MEQ/L Blood Urea Nitrogen 45 MG/DL 32 MG/DL Creatinine 1.80 MG/DL 1.21 MG/DL Estimat Glomerular Filtration 39 ML/MIN 62 ML/MIN Rate Random Glucose 133 MG/DL 99 MG/DL Calcium Level 9.1 MG/DL 8.3 MG/DL Magnesium Level 2.3 MG/DL Total Bilirubin 0.9 MG/DL Aspartate Amino Transf 29 U/L (AST/SGOT) Alanine Aminotransferase 41 U/L (ALT/SGPT) Alkaline Phosphatase 56 U/L Ammonia 62 MCMOL/L 91 MCMOL/L Total Creatine Kinase 215 U/L Creatine Kinase MB 6.1 NG/ML Troponin I LESS THAN 0.02 NG/ML B-Type Natriuretic Peptide 65 PG/ML Total Protein 7.9 GM/DL Albumin 3.6 GM/DL Lipase 229 U/L Thyroid Stimulating Hormone 0.033 uIU/ML 3rd Gen Salicylates Level LESS THAN 1.7 MG/DL Acetaminophen Level LESS THAN 2.0 MCG/ML Ethyl Alcohol Level LESS THAN 3 MG/DL Urine Color LIGHT-YELLOW Urine Turbidity CLEAR Urine pH 6.5 Urine Specific [place] 1.007 Urine Protein NEG mg/dL Urine Glucose (UA) NEG mg/dL Urine Ketones NEG mg/dL Urine Occult Blood NEG Urine Nitrite NEG Urine Bilirubin NEG Urine Urobilinogen LESS THAN 2.0 MG/DL Urine Leukocyte Esterase NEG Urine WBC LESS THAN 1 /hpf Urine Squamous Epithelial <1 /hpf Cells Urine Hyaline Casts 2 /lpf Microscopic Urinalysis Comment CULT NOT INDICATED Urine Opiates Screen NEG Urine Barbiturates Screen NEG Urine Amphetamines Screen NEG Urine Benzodiazepines Screen NEG Urine Cocaine Screen NEG Urine Cannabinoids Screen NEG Blood Type A POSITIVE A POSITIVE Antibody Screen NEGATIVE Crossmatch Leukocyte-Reduced Leukocyte-Reduced Red Blood Red Blood Cells Cells Blood Bank Comment Free Thyroxine 0.77 NG/DL Total Triiodothyronine 116 NG/DL Physical Examination HEENT: EOMI; normocephalic; atraumatic; no jaundice. CHEST: Chest is clear to auscultation and percussion. CARDIAC: Regular rate and rhythm with no murmur gallop or rubs. ABDOMEN: Soft, obese, nontender; no hepatosplenomegaly; bowel sounds are present in all four quadrants. EXTREMITIES: No clubbing, cyanosis, or edema. SKIN: Normal; no rash; no jaundice. 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 (Kalyani Wilkinson) Assessment and Plan Plan ASSESSMENT - anemia 6.8, 21.2, symptomatic. he does have hx GIB, varices, prior heavy drinking. Will do EGD and colonoscopy. PPI. - hepatic encephalopathy, cirrhosis - confusion seems to be improving, pt is oriented x 3 today. ammonia decreased to 62. LFT WNL. lactulose, rifaximin, aldactone, propanolol, lasix PLAN: - EGD and colonoscopy tomorrow - obtain consents - clears now - NPO after midnight - continue PPI - continue lactulose - continue rifaximin - continue diuretics if needed - continue propanolol - monitor labwork - further recommendations based on results above This pt seen by myself and Dr Gonzalez and this note is written on his behalf (Kalyani Wilkinson) Physician Comments Seen and examined with LINDA, no active bleeding reported. Transfusion in progress. Egd/ colonoscopy planned for tomorrow. Discussed with pt. and . Thank you (Jeanette Gonzalez MD) Kalyani Wilkinson February 23, 2017 12:11 Jeanette Gonzalez MD February 23, 2017 16:47
--- NOTE | 2017-02-23 14:18 | EKG ---
Date Performed: 02/22/2017 Time Performed: 11:51:31 PTAGE: 56 years EKG: Sinus rhythm POSSIBLE LEFT ATRIAL ENLARGEMENT LEFT VENTRICULAR HYPERTROPHY AND ST-T CHANGE ABNORMAL ECG Compared to the PREVIOUS TRACING criteria for LVH is now met PREVIOUS TRACIN12/22/2014 22.51 DOCTOR: Andres Campos Interpretating Date/Time 02/23/2017 14:17:46
[2017-02-23] MEDS ORDERED: PEG (High)/E-LYTE SOLN 4000 ML BTL PO ONE (16:00)
[2017-02-23 20:31] LABS: HEMATOCRIT 30.2 % (39.0-51.0)
[2017-02-23 20:34] LABS: REVIEW FLAG FINAL
[2017-02-24] VITALS (7 sets, daily range): BP systolic 103–125; BP diastolic 56–67; PULSE 59–72; RESP 16; TEMP 97.2–98.2; O2SAT 94–100
[2017-02-24] MEDS: SPIRONOLACTONE 50 MG TAB PO SCH (08:27)
[2017-02-24] MEDS: LACTULOSE SYRUP 20 GM/30 ML CUP PO SCH ×3 (08:28→17:06)
[2017-02-24] MEDS: RIFAXIMIN 550 MG TAB PO SCH ×2 (08:28→21:07)
[2017-02-24] MEDS: PANTOPRAZOLE SOD 40 MG DELAYED RELEASE TAB PO SCH (08:28)
[2017-02-24] MEDS: PROPRANOLOL HCL 10 MG TAB PO SCH (08:28)
[2017-02-24] MEDS ORDERED: PROPOFOL 200 MG/20 ML AMP IV ONE (10:41)
--- NOTE | 2017-02-24 11:03 | GIPROC ---
[facility] [address] [facility]. [facility], [address] EGD PROCEDURE REPORT EXAM DATE: 02/24/2017 PATIENT NAME: Yevgeniy Paulson MR #: [id number] BIRTHDATE: 1960 ATTENDING: Jeanette Gonzalez MD ORDER #: [id number] SPRAY PAINTING MACHINE OPERATOR: Noel Connor Glinsky, Jason, and Ave Moe STATUS: inpatient INDICATIONS: The patient is a 56 yr old male here for an EGD due to iron deficiency anemia PROCEDURE PERFORMED: EGD w/ biopsy MEDICATIONS: None and Per Anesthesia. TOPICAL ANESTHETIC: CONSENT: The patient understands the risks and benefits of the procedure and understands that these risks include, but are not limited to: sedation, allergic reaction, infection, perforation and/or bleeding. Alternative means of evaluation and treatment include, among others: physical exam, x-rays, and/or surgical intervention. The patient elects to proceed with this endoscopic procedure. medical equipment was checked for proper function. Hand hygiene and appropriate measures for infection prevention was taken. After the risks, benefits and alternatives of the procedure were thoroughly explained, Informed consent was verified, confirmed and timeout was successfully executed by the treatment team. The patient was anesthetized with topical anesthesia and the EC-[id number] (Pedi C) endoscope was introduced through the mouth and advanced to the second portion of the duodenum. Retroflexed views revealed no abnormalities The gastroscope was then slowly withdrawn and removed. ESOPHAGUS: There was a single small varix in the lower third of the esophagus. There was evidence of prior scarring. STOMACH: There was moderate gastritis in the gastric body. A biopsy was performed using cold forceps. DUODENUM: The duodenal mucosa appeared normal. ADVERSE EVENTS: There were no complications. IMPRESSIONS: 1. There was gastritis in the gastric body; biopsy was performed 2. Normal duodenal mucosa 3. Retroflexed views revealed no abnormalities RECOMMENDATIONS: 1. Await biopsy results. Biopsy results will not be ready for 7-10 days. If you don't hear from us in two weeks, call our office for biopsy results. 2. Anti-reflux regimen 3. Continue PPI 4. Avoid NSAIDS PATIENT CONDITION: stable DISPOSITION: Inpatient REPEAT EXAM: Return 1 year EGD Jeanette Gonzalez MD eSigned: Jeanette Gonzalez MD 02/24/2017 11:03 AM cc: PATIENT NAME: KhurramYevgeniy MR#: [id number]
--- NOTE | 2017-02-24 11:06 | GIPROC ---
[facility] [address] [facility]. [facility], [address] COLONOSCOPY PROCEDURE REPORT EXAM DATE: 02/24/2017 PATIENT NAME: Yevgeniy Paulson MR #: [id number] BIRTHDATE: 1960 ENDOSCOPIST: Jeanette Gonzalez MD ORDER #: [id number] INCOMING FREIGHT CLERK: Alex Mercado RN STATUS: inpatient INDICATIONS: The patient is a 56 yr old male here for a colonoscopy due to iron deficiency anemia PROCEDURE PERFORMED: Colonoscopy with polypectomy MEDICATIONS: None and Per Anesthesia. PREP QUALITY: The [place] Bowel Prep Score was Right colon 1, Mid colon 1, and Left colon 2. Total = 4. PREP TYPE:Go[place]ytely ESTIMATED BLOOD LOSS: None CONSENT: The patient understands the risks and benefits of the procedure and understands that these risks include, but are not limited to: sedation, allergic reaction, infection, perforation and/or bleeding. Alternative means of evaluation and treatment include, among others: physical exam, x-rays, and/or surgical intervention. The patient elects to proceed with this endoscopic procedure. medical equipment was checked for proper function. Hand hygiene and appropriate measures for infection prevention was taken. After the risks, benefits and alternatives of the procedure were thoroughly explained, Informed consent was verified, confirmed and timeout was successfully executed by the treatment team. A digital exam revealed external hemorrhoids The Pentax EC-3490Li endoscope was introduced through the anus and advanced to the cecum, which was identified by both the appendix and ileocecal valve. The instrument was then slowly withdrawn as the colon was fully examined. COLON FINDINGS: A polypoid shaped pedunculated polyp ranging between 5-9mm in size was found in the sigmoid colon. A polypectomy was performed using snare cautery. The resection was complete and the polyp tissue was completely retrieved. Retroflexed views revealed internal hemorrhoids and Retroflexed views revealed medium internal hemorrhoids The scope was then completely withdrawn from the patient and the procedure terminated. PROCEDURE WITHDRAWAL TIME:6minutes ADVERSE EVENTS: There were no complications. IMPRESSIONS: 1. A pedunculated polyp ranging between 5-9mm in size was found in the sigmoid colon; polypectomy was performed using snare cautery 2. Retroflexed views revealed internal hemorrhoids 3. Retroflexed views revealed medium internal hemorrhoids 4. Revealed external hemorrhoids RECOMMENDATIONS: 1. Await biopsy results. Biopsy results will not be ready for 7-10 days. If you don't hear from us in two weeks, call our office for results. 2. Continue surveillance 3. Yearly hemoccult RECALL: Return 1 year Colonoscopy, pending biopsy results Jeanette Gonzalez MD eSigned: Jeanette Gonzalez MD 02/24/2017 11:05 AM cc: PATIENT NAME: Yevgeniy Paulson MR#: [id number]
--- NOTE | 2017-02-24 14:32 | HHI.PR ---
Subjective Remarks awake, alert oriented x 3 feels more sharp mentally no rectal bleeding no cp no sob eating well no n/v no fatigue at bsd anxious to go home states he was not drinking lactulose regularly, discussed compliance with both pt. and , verbalized understandin Objective Objective Results - Vital Signs Date Time Temp Pulse Resp B/P Pulse Ox O2 Delivery O2 Flow Rate FiO2 02/24/17 13:33 100 Room Air 02/24/17 12:00 97.7 59 16 112/59 100 02/24/17 11:43 72 02/24/17 11:10 67 16 102/64 98 02/24/17 11:04 70 16 91/54 98 02/24/17 10:59 98.5 75 16 98/65 97 02/24/17 08:50 97.6 70 16 103/56 97 02/24/17 08:00 97.6 70 16 103/56 97 02/24/17 04:22 98.2 67 16 116/56 94 02/23/17 23:35 97.3 70 18 131/69 97 02/23/17 20:42 97.7 75 16 131/65 98 02/23/17 20:00 Room Air 02/23/17 20:00 66 02/23/17 16:00 97.2 63 20 116/63 98 I/O 02/23/17 02/23/17 02/23/17 02/24/17 02/24/17 02/24/17 07:00 15:00 23:00 07:00 15:00 23:00 Intake Total 1707 ml 720 ml 360 ml 0 ml 800 ml Output Total 800 ml Balance 907 ml 720 ml 360 ml 0 ml 800 ml Intake Oral 480 ml 720 ml 360 ml 0 ml IV Total 1227 ml Other 800 ml Output Urine Total 800 ml # Voids 4 4 4 # Bowel Movements 0 1 5 6 Result Diagram: 02/23/17200702/23/17 0605 Imaging Last Impressions Head CT 02/22/171202 Signed Impressions: Service Date/Time: Wednesday, February 22, 2017 13:25 - CONCLUSION: No acute disease. Rom Brennan MD Chest X-Ray 02/22/17 1203 Signed Impressions: Service Date/Time: Wednesday, February 22, 2017 12:43 - CONCLUSION: 1. Stable postoperative chest. There is decreasing effusion and consolidation compared to previous dated 01/18/15. Scott Meng MD Other Results Laboratory Tests Test 02/23/17 20:08 Hemoglobin 9.7 Hematocrit 30.2 ROS General: No: Fatigue, Weakness HEENT: No: Sore Throat, Dysphagia Cardiac: No: Chest Pain, Edema, Palpitations Pulmonary: No: Cough, SOB, Wheezing GI: No: Abdominal Pain, BM, Diarrhea, N/V /ESCROW OFFICER: No: Dysuria, Urgency Neuro/MS: No: Lightheaded, Confusion Psych: No: Anxiety, Depression Skin: No: Itching, Rash Physical Exam Physical Exam GENERAL: This is a well developed, moderately obese male. SKIN: Pale, cool and dry. HEAD: Atraumatic. Normocephalic. No temporal or scalp tenderness. EYES: Pupils equal round and reactive. Extraocular motions intact. No scleral icterus. No injection or drainage. ENT: Nose without bleeding, purulent drainage or septal hematoma. Throat without erythema, tonsillar hypertrophy or exudate. Uvula midline. Airway patent. NECK: Trachea midline. No JVD or lymphadenopathy. Supple, nontender, no meningeal signs. CARDIOVASCULAR: Regular rate and rhythm without murmurs, gallops, or rubs. RESPIRATORY: Clear to auscultation. Breath sounds equal bilaterally. No wheezes , rales, or rhonchi. Left lateral chest wall with scar from previous surgery. GASTROINTESTINAL: Abdomen bulky, soft nontender, slightly distended. Bowel sounds normoactive 4. MUSCULOSKELETAL: Extremities without clubbing, cyanosis, or edema. No joint tenderness, effusion, or edema noted. No calf tenderness. Negative Homans sign bilaterally. NEUROLOGICAL: Awake, oriented to place, year, unable to provide details. No focal deficits noted. Urinary Catheter: No Vascular Central Line Catheter: No A/P Diagnosis: (1) Altered mental status (2) Hepatic encephalopathy (3) Anemia (4) Acute kidney injury (5) CAD (coronary artery disease) (6) Thrombocytopenia (7) Cirrhosis Assessment and Plan 56-year-old male with history of prior alcohol abuse, alcoholic cirrhosis with previous GI bleed and upper endoscopy with variceal banding. Presented to the emergency room with increased confusion, complain of fatigue. Was noted with elevated ammonia level and hemoglobin of 7.2, hematocrit 23.4. Symptomatic anemia, etiology unclear, prior history of GI bleed with varices. -Consult GI for evaluation-pending -s/p 3 units PRBC, post hh stable -Protonix 40 mg by mouth daily -S/P EGD/Colonoscopy, small varix, mod gastritis, polyp, no active bleeding Altered mental status, with hepatic encephalopathy, elevated ammonia level of 62. Liver cirrhosis, prior history of alcohol abuse. Blood alcohol level was negative. Quit drinking 3 years ago. Possible noncompliance. -Continue lactulose ammonia level 91, Rifaximin 550 mg by mouth twice a day -Continue with Aldactone 50 milkers by mouth daily -Continue with propanolol 10 mg by mouth daily -back to baseline, oriented x 3 -ammonia level pending Acute kidney injury-improving -resolved Thrombocytopenia, likely secondary to liver disease Avoid any anticoagulants -plat 102 -monitor for bleeding Coronary artery disease and prior CABG. Had recent stress test, results are unknown. Patient denies any chest pain, no shortness of breath. Continue to monitor Continuous cardiac telemetry -Continue with medical management Depressed TSH ok total T3 and free T4 SCDs for DVT prophylaxis, avoid anticoagulation due anemia, thrombocytopenia Protonix for GI prophylaxis doing well post EGD and colonoscopy repeat CBC and ammonia level pending, is stable, poss dc today F/U GI 2 weeks Diet-heart healthy discussed compliance with meds, verbalizes understanding D/W RN D/W Dr. Handley D/W pt./ This patient was seen by myself and Dr. Handley, this note is written on his behalf Problem Qualifiers (1) Altered mental status: Qualified Code: R41.82 - Altered mental status, unspecified altered mental status type (2) Anemia: Qualified Code: D64.9 - Anemia, unspecified type (3) CAD (coronary artery disease): Qualified Code: I25.10 - Coronary artery disease involving [place] coronary artery of [place] heart without angina pectoris (4) Cirrhosis: Stephanie Grant February 24, 2017 14:32
--- NOTE | 2017-02-24 14:38 | HHI.DCPOC ---
Discharge Care Plan Diagnosis: (1) Altered mental status (2) Thrombocytopenia (3) Acute kidney injury (4) Hepatic encephalopathy (5) Anemia associated with acute blood loss Your Health Problems Are: Difficulty with ADL Bleeding Tendency Goals to Promote Your Health * To prevent worsening of your condition and complications * To maintain your health at the optimal level Directions to Meet Your Goals Take your medications as prescribed Follow your dietary instruction Follow activity as directed Keep your appointments as scheduled Take your immunizations and boosters as scheduled If your symptoms worsen call your PCP, if no PCP go to Urgent Care Center or Emergency Room Smoking is Dangerous to Your Health. Avoid second hand smoke Call the 24-hour hour crisis hotline for domestic abuse at Stephanie Grant. [facility] February 24, 2017 14:38
[2017-02-24] MEDS: SODIUM CHLOR 0.9% 1000 ML INJ 1,000 ML IV SCH (15:52)
[2017-02-24 16:54] LABS: HEMATOCRIT 28.8 % (39.0-51.0); MEAN CELL VOLUME 69.4 FL (80.0-100.0); MEAN CORPUSCULAR HEMOGLOBIN 21.9 PG (27.0-34.0); MEAN CORPUSCULAR HGB CONC 31.5 % (32.0-36.0); PLATELET COUNT 94 TH/MM3 (150-450); RED BLOOD COUNT 4.15 MIL/MM3 (4.50-5.90); RED CELL DISTRIBUTION WIDTH 22.3 % (11.6-17.2); WHITE BLOOD COUNT 4.6 TH/MM3 (4.0-11.0)
[2017-02-24 17:04] LABS: REVIEW FLAG FINAL
[2017-02-24 17:21] LABS: BICARBONATE 21.1 MEQ/L (21.0-32.0); POTASSIUM 3.8 MEQ/L (3.5-5.1)
[2017-02-25] VITALS: BP 128/60; PULSE 72; RESP 18; TEMP 97.8; O2SAT 96
[2017-02-25 04:00] VITALS: BP 109/63; PULSE 68; RESP 16; TEMP 98; O2SAT 96
[2017-02-25 04:45] VITALS: PULSE 69
[2017-02-25 08:00] VITALS: BP 113/66; PULSE 79; RESP 18; TEMP 97.8; O2SAT 93
[2017-02-25 08:19] VITALS: PULSE 69
[2017-02-25] MEDS: SPIRONOLACTONE 50 MG TAB PO SCH (08:52)
[2017-02-25] MEDS: PANTOPRAZOLE SOD 40 MG DELAYED RELEASE TAB PO SCH (08:52)
[2017-02-25] MEDS: RIFAXIMIN 550 MG TAB PO SCH (08:52)
[2017-02-25] MEDS: LACTULOSE SYRUP 20 GM/30 ML CUP PO SCH ×2 (08:52→12:36)
[2017-02-25] MEDS: PROPRANOLOL HCL 10 MG TAB PO SCH (08:52)
[2017-02-25] MEDS: SODIUM CHLOR 0.9% 1000 ML INJ 1,000 ML IV SCH (11:02)
--- NOTE | 2017-02-25 11:03 | HHI.PR ---
Subjective Remarks Up in chair Alert oriented Cooperative Denies any bleeding No shortness of breath Afebrile Objective Objective Results - Vital Signs Date Time Temp Pulse Resp B/P Pulse Ox O2 Delivery O2 Flow Rate FiO2 02/25/17 08:50 Room Air 02/25/17 08:19 69 02/25/17 08:00 97.8 79 18 113/66 93 02/25/17 04:45 69 02/25/17 04:00 98.0 68 16 109/63 96 02/25/17 00:00 97.8 72 18 128/60 96 02/24/17 21:10 Room Air 02/24/17 20:00 98.1 64 16 125/67 97 02/24/17 16:00 97.2 62 16 112/64 97 02/24/17 13:33 100 Room Air 02/24/17 12:00 97.7 59 16 112/59 100 02/24/17 11:43 72 02/24/17 11:10 67 16 102/64 98 02/24/17 11:04 70 16 91/54 98 02/24/17 10:59 98.5 75 16 98/65 97 I/O 02/24/17 02/24/17 02/24/17 02/25/17 02/25/17 02/25/17 07:00 15:00 23:00 07:00 15:00 23:00 Intake Total 0 ml 1280 ml 388 ml 120 ml Balance 0 ml 1280 ml 388 ml 120 ml Intake Oral 0 ml 480 ml 120 ml IV Total 388 ml Other 800 ml # Voids 4 3 2 # Bowel Movements 6 2 1 Result Diagram: 02/24/17 1635 02/24/17 1635 Medications and IVs Administered Medications Medications (Trade) Dose Ordered Sig/Roe Route PRN Reason Start Time Stop Time Status Last Admin Dose Admin Propranolol HCl (Inderal) 10 mg DAILY PO 02/23/17 09:00 02/25/17 08:52 Spironolactone (Aldactone) 50 mg DAILY PO 02/23/17 09:00 02/25/17 08:52 Pantoprazole Sodium (Protonix) 40 mg DAILY PO 02/23/17 09:00 02/25/17 08:52 Lactulose (Lactulose Liq) 30 ml TID PO 02/22/17 18:00 02/25/17 08:52 Rifaximin 550 mg 550 mg BID PO 02/22/17 21:00 02/25/17 08:52 Sodium Chloride (NS 1000 ml Inj) 1,000 ml @ 50 mls/hr Q20H IV 02/22/17 16:00 02/24/17 15:52 ROS General: Weakness (generalized but improved), Other (10 point ROS done systems unremarkable) Physical Exam Physical Exam PHYSICAL EXAMINATION GENERAL: This is a male who appears to be in no acute distress currently at rest He is alert and awake , HEAD: Normocephalic without any lesion or mass noted. Facial features appear symmetric. OROPHARYNGEAL: Oropharynx without erythema or edema. NECK: Supple. No nuchal rigidity or lymphadenopathy. Trachea midline without deviation. CARDIAC: Regular rhythm, regular rate, S1 and S2 are heard. Murmur soft , grade 2/6 left sternal border , no gallops or rubs. LUNGS: Clear to auscultation bilaterally. No wheeze, no rhonchi ABDOMEN: Soft, nontender, no organomegaly or masses. Bowel sounds are heard in all four quadrants. No rebound. No guarding. EXTREMITIES: trace edema. Pulses equal bilateral. NEUROLOGICAL: Patient mood and affect appropriate. No focal deficit SKIN:Warm and moist, nino, Objective Remarks I'm feeling good this morning and walking to A/P Assessment and Plan Symptomatic anemia, resolved, hemoglobin stable at 9.1 Post EGD and colonoscopy, polyp biopsied, moderate gastritis, hemorrhoids -Consult GI for evaluation-pending PUD prophylaxis Monitored during hospital stay for any bleeding none noted now Altered mental status, with hepatic encephalopathy, ammonia level now trended down Liver cirrhosis, prior history of alcohol abuse. Resolved, Hx Coronary artery disease and prior CABG. Patient denies any chest pain, no shortness of breath. telemetry, no acute issues during hospital stay -Continue with medical management Recently saw cardiology as an outpatient, will follow up Depressed TSH ok total T3 and free T4 SCDs for DVT prophylaxis, avoid anticoagulation due anemia, thrombocytopenia Protonix for GI prophylaxis F/U GI 2 weeks Diet-heart healthy Discharge planning probable today patient appears to be medically stable D/W RN D/W Dr. Handley, patient seen on his behalf Discussed with the patient Brianne Carrasco February 25, 2017 11:03
[2017-02-25 12:00] VITALS: BP 147/78; PULSE 59; RESP 18; TEMP 97.6; O2SAT 98
[2017-02-25] MEDS ORDERED: XIFA550T4 PO (13:57)
--- NOTE | 2017-02-25 15:37 | HHI.DS ---
Discharge Summary Admission Date February 22, 2017 at 14:11 Discharge Date: February 25, 2017 Admitting Diagnosis altered mental status, symptomatic anemia, acute kindey injury (1) Altered mental status Diagnosis: Principal (2) Hepatic encephalopathy Diagnosis: Principal (3) Anemia Diagnosis: Principal (4) Acute kidney injury Diagnosis: Principal (5) CAD (coronary artery disease) Diagnosis: Secondary (6) Thrombocytopenia Diagnosis: Principal (7) Cirrhosis Diagnosis: Secondary Procedures EGD/colonoscopy Brief History This was a 56-year-old male with significant past medical history of alcoholic liver cirrhosis, varices, GI bleed, CAD. Prior admission in 2014 for GI bleed where he underwent EGD with banding and blood transfusion. At that time, patient had a prolonged hospitalization was complicated by cardiorespiratory arrest was intubated. Patient was found with hemothorax and mediastinal shift require chest tube insertions and subsequent thoracotomy and VATS procedure. According to the patient's , he had been doing relatively well. Has not had any recent hospitalizations since 2014. In 2016 he had EGD with banding as outpatient. He followed up regularly with Dr. Gotti. Patient was altered, unable to provide history. is at bedside providing details. According to the , yesterday patient was complaining of not feeling well however he was unable to pinpoint. 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 According to the , he showed up at her office wearing his pajamas and was not acting like himself. He actually drove himself to her office. She contacted Dr. Goodson's office and appointment was canceled. decided to bring him in for further evaluation. Per , patient quit drinking 3 years ago. She is not clear whether he's been taking his lactulose. Patient denied any chest pain, no shortness of breath. He knew the name of the hospital and year however he is continually asking if he needs to remain in the hospital. He admited feeling tired, no chest pain or shortness of breath. According to the , cardiology did a stress test a week ago and he was supposed to have a follow-up as the findings were abnormal. I did speak to Dr. Jaramillo and believes that the stress test findings were okay. CBC/BMP: 02/24/17 1635 02/24/17 1635 Significant Findings Laboratory Tests Test 02/23/17 02/23/17 02/24/17 02/25/17 06:05 20:08 16:35 06:14 Red Blood Count 3.18 MIL/MM3 4.15 MIL/MM3 (4.50-5.90) (4.50-5.90) Hemoglobin 6.8 GM/DL 9.7 GM/DL 9.1 GM/DL (13.0-17.0) (13.0-17.0) (13.0-17.0) Hematocrit 21.2 % 30.2 % 28.8 % (39.0-51.0) (39.0-51.0) (39.0-51.0) Mean Corpuscular Volume 66.7 FL 69.4 FL (80.0-100.0) (80.0-100.0) Mean Corpuscular Hemoglobin 21.4 PG 21.9 PG (27.0-34.0) (27.0-34.0) Red Cell Distribution Width 21.6 % 22.3 % (11.6-17.2) (11.6-17.2) Platelet Count 102 TH/MM3 94 TH/MM3 (150-450) (150-450) Chloride Level 110 MEQ/L 110 MEQ/L (98-107) (98-107) Carbon Dioxide Level 20.9 MEQ/L (21.0-32.0) Blood Urea Nitrogen 32 MG/DL (7-18) 20 MG/DL (7-18) Estimat Glomerular Filtration 62 ML/MIN (>89) 70 ML/MIN (>89) Rate Calcium Level 8.3 MG/DL (8.5-10.1) Ammonia 91 MCMOL/L 102 MCMOL/L 47 MCMOL/L (11-32) (11-32) (11-32) Mean Corpuscular Hemoglobin 31.5 % Concent (32.0-36.0) Imaging Last Impressions Head CT 02/22/17 120 Signed Impressions: Service Date/Time: Wednesday, February 22, 2017 13:25 - CONCLUSION: No acute disease. Rom Brennan MD Chest X-Ray 02/22/17 1203 Signed Impressions: Service Date/Time: Wednesday, February 22, 2017 12:43 - CONCLUSION: 1. Stable postoperative chest. There is decreasing effusion and consolidation compared to previous dated 01/18/15. Scott Meng MD PE at Discharge GENERAL: This was a well developed, moderately obese male. SKIN: Pale, cool and dry. HEAD: Atraumatic. Normocephalic. No temporal or scalp tenderness. EYES: Pupils equal round and reactive. Extraocular motions intact. No scleral icterus. No injection or drainage. ENT: Nose without bleeding, purulent drainage or septal hematoma. Throat without erythema, tonsillar hypertrophy or exudate. Uvula midline. Airway patent. NECK: Trachea midline. No JVD or lymphadenopathy. Supple, nontender, no meningeal signs. CARDIOVASCULAR: Regular rate and rhythm without murmurs, gallops, or rubs. RESPIRATORY: Clear to auscultation. Breath sounds equal bilaterally. No wheezes , rales, or rhonchi. Left lateral chest wall with scar from previous surgery. GASTROINTESTINAL: Abdomen bulky, soft nontender, slightly distended. Bowel sounds normoactive 4. MUSCULOSKELETAL: Extremities without clubbing, cyanosis, or edema. No joint tenderness, effusion, or edema noted. No calf tenderness. Negative Homans sign bilaterally. NEUROLOGICAL: Awake, oriented to place, year, unable to provide details. No focal deficits noted. Urinary Catheter: No Vascular Central Line Catheter: No A Hospital Course Patient was evaluated in the emergency room, laboratory workup was completed. CBC was remarkable for anemia, hemoglobin 7.2, hematocrit 23.4, platelets 137. Urinalysis was clean. AST was 29, ALT 41. Ammonia level was elevated 62. BMP was remarkable for elevated BUN and creatinine, BUN 1.8, creatinine 29. He does have a history of prior acute kidney injury in 2015 when he was critically ill. CT of the head was negative. Chest x-ray did not reveal any acute findings. Patient was hemodynamically stable, denied any abdominal pain. Has not noticed black or bloody stools. No hematemesis. He is pleasant and cooperative however confused. Patient was admitted for further evaluation and treatment. These are the diagnoses that were used to treat the patient in during his plan of care/hospital stay Diagnosis: (1) Altered mental status (2) Hepatic encephalopathy (3) Anemia (4) Acute kidney injury (5) CAD (coronary artery disease) (6) Thrombocytopenia (7) Cirrhosis Assessment and Plan 56-year-old male with history of prior alcohol abuse, alcoholic cirrhosis with previous GI bleed and upper endoscopy with variceal banding. Presented to the emergency room with increased confusion, complain of fatigue. Was noted with elevated ammonia level and hemoglobin of 7.2, hematocrit 23.4. Symptomatic anemia, etiology unclear, prior history of GI bleed with varices. -Consult GI for evaluation. Patient was given-s/p 3 units PRBC, post hh stable -Protonix 40 mg by mouth daily for PUD prophylaxis -GI decided on S/P EGD/Colonoscopy, small varix, mod gastritis, polyp, no active bleeding Altered mental status, with hepatic encephalopathy, elevated ammonia level of 62., Level climbed even higher next day Liver cirrhosis, prior history of alcohol abuse. Blood alcohol level was negative. Quit drinking 3 years ago. Possible noncompliance., But but decided diet increased ammonia levels causing his altered mental status -Continue lactulose ammonia level 91, Rifaximin 550 mg by mouth twice a day -Continue with Aldactone 50 milkers by mouth daily -Continue with propanolol 10 mg by mouth daily -back to baseline, oriented x 3 -ammonia level were checked almost daily throughout his hospital stay Acute kidney injury-improving , improved with hydration and and due to probable volume depletion/ dehydration -resolved Thrombocytopenia, likely secondary to liver disease Avoid any anticoagulants -plat 102 -monitor for bleeding Coronary artery disease and prior CABG. Had recent stress test, results are unknown. Patient denies any chest pain, no shortness of breath. Continue to monitor Continuous cardiac telemetry -Continue with medical management Depressed TSH ok total T3 and free T4 On a.m. of discharge patient was alert oriented appropriate with his responses. He was deemed medically stable on discharge per Dr. Handley. Will follow up on an outpatient basis with his PCP and cardiology, GI for warranted Pt Condition on Discharge: Stable Discharge Disposition: Discharge Home Discharge Instructions DIET: Follow Instructions for: Heart Healthy Diet Fluid Restrictions: 1400cc/day Activities you can perform: Weight Bearing as Selena Other Activity Instructions: No alcohol Follow up Referrals: Gastroenterology - 2 Weeks with Jeanette Gonzalez MD PCP Follow-up New Medications: Rifaximin (Xifaxan) 550 Mg Tab 550 MG PO BID HE #60 TAB Continued Medications: Cyanocobalamin (Vitamin B12) 500 Mcg Tab 3000 MCG PO DAILY #1 BOTTLE Furosemide (Lasix) 40 Mg Tab 40 MG PO DAILY #30 Ref 0 TAB Hydrocodone-Acetaminophen (Hydrocodone-Acetaminophen) 5-325 mg Tab 1 TAB PO Q4H PRN PAIN Ref 0 TAB Lactulose Liq (Lactulose Liq) 10 Gm/15 Ml Soln 15 ML PO BID PRN Nutritional Supplement Ref 0 ML Multiple Vitamin (Multiple Vitamin) 1 Tab 1 TAB PO DAILY Nutritional Supplement Ref 0 TAB Omeprazole (Omeprazole) 40 Mg Cap 40 MG PO DAILY #30 Ref 0 CAP Potassium Chloride ER (Potassium Chloride CR) 10 Meq Tab 20 MEQ PO DAILY TAB Potassium Gluconate (Potassium Gluconate) 595 Mg Tab 595 TAB PO DAILY NEB Propranolol (Propranolol) 10 Mg Tab 10 MG PO DAILY #60 Ref 0 TAB Spironolactone (Spironolactone) 50 Mg Tab 50 MG PO DAILY #30 Ref 0 TAB Temazepam (Temazepam) 15 Mg Cap 15 MG PO HS PRN INSOMNIA #30 Ref 0 CAP Brianne Carrasco February 25, 2017 15:37
== END 2017-02-25 14:15 | disposition home or self-care (01) | DRG 442 ==
LOC: NEPE 11:35 → NEDA 14:11 → N04A 21:14
PROVIDERS: ADMIT Specialist; ATTEND Specialist
PROC: 30233N1 Transfusion of Nonautologous Red Blood Cells into Peripheral Vein, Percutaneous Approach (ICD-10-PCS; principal; 2017-02-22)
PROC: 0DBN8ZX Excision of Sigmoid Colon, Via Natural or Artificial Opening Endoscopic, Diagnostic (ICD-10-PCS; 2017-02-24)
PROC: 0DB68ZX Excision of Stomach, Via Natural or Artificial Opening Endoscopic, Diagnostic (ICD-10-PCS; 2017-02-24 10:30)
DX: K72.90 Hepatic failure, unspecified without coma (principal); N17.9 Acute kidney failure, unspecified; D69.59 Other secondary thrombocytopenia; D64.9 Anemia, unspecified; K70.30 Alcoholic cirrhosis of liver without ascites; I25.10 Atherosclerotic heart disease of native coronary artery without angina pectoris; Z95.1 Presence of aortocoronary bypass graft; K29.70 Gastritis, unspecified, without bleeding; K63.5 Polyp of colon; K64.8 Other hemorrhoids; K64.4 Residual hemorrhoidal skin tags; E66.9 Obesity, unspecified; Z68.33 Body mass index [BMI] 33.0-33.9, adult; Z87.891 Personal history of nicotine dependence
CPT/HCPCS: 36430; 70450; 71010; 80048; 80053; 80307; 81001; 82140; 82550; 82552; 83690; 83735; 83880; 84439; 84443; 84480; 84484; 85014; 85018; 85025; 85027; 85610; 85730; 86850; 86900; 86901; 86902; 86920; 86922; 88305; 88307; 88312; 93005; 96360; J1940; J7030; J7050; P9016

== ENCOUNTER 2017-03-09 14:00 | Observation (INO) | payer OTHER ==
[~2017-03-09] VITALS: Ht 162.6 cm; Wt 82.0 kg
[~2017-03-09 14:00] MED LIST changes: -ALPR.25 PO; -ATOR10 PO; +FURO1TAB60 PO; -FURO20 PO; +HYDR-3516 PO; +LACT10SO PO; -LORTA5 PO; -MAGN400 PO; +MULTTAB67 PO; -OMEP20TA39 PO; +OMEP40CA2 PO; +POTA10TA8 PO; +POTA595T PO; +PROP10TA6 PO; -SPIR50 PO; +SPIR50TA PO; -TAB-TAB PO; +TEMA15CA PO; +VITA500T49 PO; +XIFA550T4 PO
[2017-03-09 14:03] VITALS: BP 120/73; PULSE 89; RESP 15; TEMP 98.4; O2SAT 95
--- NOTE | 2017-03-09 14:10 | PD ---
Physical Exam Time Seen by Provider: 14:08 Narrative 56yo M with confusion. Was here 2 weeks ago for same complaint and was given blood transfusion and ammonia level was elevated. Was told to come by PCP. Hx of cirrhosis of liver. Patient seen in triage. Awaiting bed placement. VS reviewed. Data Data Last Documented VS Vital Signs Date Time Temp Pulse Resp B/P Pulse Ox O2 Delivery O2 Flow Rate FiO2 03/09/17 14:03 98.4 89 15 120/73 95 MDM Supervised Visit with DANIEL: Melanie Howe March 09, 2017 14:10
[2017-03-09 15:29] LABS: AUTOMATED NEUTROPHIL # 3.5 TH/MM3 (1.8-7.7); BASOPHIL % 0.2 % (0.0-2.0); EOSINOPHIL # 0.2 TH/MM3 (0-0.4); EOSINOPHIL % 3.3 % (0.0-4.0); HEMATOCRIT 33.6 % (39.0-51.0); LYMPH % 22.6 % (9.0-44.0); LYMPHOCYTE # 1.4 TH/MM3 (1.0-4.8); MEAN CELL VOLUME 73.4 FL (80.0-100.0); MEAN CORPUSCULAR HEMOGLOBIN 23.3 PG (27.0-34.0); MEAN CORPUSCULAR HGB CONC 31.7 % (32.0-36.0); MONO % 17.3 % (0.0-8.0); NEUT % 56.6 % (16.0-70.0); PLATELET COUNT 157 TH/MM3 (150-450); RED BLOOD COUNT 4.57 MIL/MM3 (4.50-5.90); RED CELL DISTRIBUTION WIDTH 26.4 % (11.6-17.2); WHITE BLOOD COUNT 6.3 TH/MM3 (4.0-11.0)
--- NOTE | 2017-03-09 15:35 | PD ---
HPI Chief Complaint: Altered Mental Status Time Seen by Provider: 15:21 Travel History International Travel<30 days: No Contact w/Intl Traveler<30days: No Traveled to known affect area: No History of Present Illness HPI OVER LAST 4 DAYS WORSENING CONFUSION PER , PEAKIING TODAY, PATIENT DENIES PAIN MURRAY/CP/ABDPAIN/ AT THIS TIME...DENIES N/V/FEVER/D AND PER FAMILY AND PATIENT HE HAS NOT MISSED HIS LACTULOSE OR OTHER OF HIS MEDICATIONS PFSH Past Medical History Autoimmune Disease: No Heart Rhythm Problems: No Cancer: No Cardiac Catheterization: No Cardiovascular Problems: Yes (triple bypass) High Cholesterol: No Chest Pain: No Congestive Heart Failure: No Cirrhosis: Yes Diabetes: No Diminished Hearing: No Endocrine: No GERD: Yes Genitourinary: No Hiatal Hernia: No Immune Disorder: No Musculoskeletal: No Neurologic: No Psychiatric: No Reproductive: No Respiratory: No Sickle Cell Disease: No Ulcer: No Past Surgical History Abdominal Surgery: No AICD: No Arteriovenous Shunt: No Cardiac Surgery: Yes (CABG) Coronary Artery Bypass Graft: Yes (TRIPLE BYPASS) Ear Surgery: No Endocrine Surgery: No Eye Surgery: No Genitourinary Surgery: No Gynecologic Surgery: No Insulin Pump: No Joint Replacement: No Oral Surgery: No Pacemaker: No Thoracic Surgery: No Tonsillectomy: Yes Other Surgery: Yes Social History Alcohol Use: No (QUIT) Tobacco Use: No (QUIT 2013) Substance Use: No Allergies-Medications (Allergen,Severity, Reaction): Coded Allergies: No Known Allergies (Unverified , 02/22/17) Reported Meds & Prescriptions Reported Meds & Active Scripts Active Xifaxan (Rifaximin) 550 Mg Tab 550 Mg PO BID Reported Vitamin B12 (Cyanocobalamin) 500 Mcg Tab 3,000 Mcg PO DAILY Lactulose Liq (Lactulose) 10 Gm/15 Ml Soln 15 Ml PO BID PRN Spironolactone 50 Mg Tab 50 Mg PO DAILY Temazepam 15 Mg Cap 15 Mg PO HS PRN Potassium Chloride CR (Potassium Chloride) 10 Meq Tab 20 Meq PO DAILY Hydrocodone-Acetaminophen 5-325 mg Tab 1 Tab PO Q4H PRN Potassium Gluconate 595 Mg Tab 595 Tab PO DAILY NEB Multiple Vitamin 1 Tab 1 Tab PO DAILY Omeprazole 40 Mg Cap 40 Mg PO DAILY Propranolol (Propranolol HCl) 10 Mg Tab 10 Mg PO DAILY Lasix (Furosemide) 40 Mg Tab 40 Mg PO DAILY Review of Systems ROS Limitations: Altered Mental Status Except as stated in HPI: all other systems reviewed are Neg Physical Exam Narrative GENERAL: SKIN: Warm and dry. HEAD: Atraumatic. Normocephalic. EYES: Pupils equal and round. No scleral icterus. No injection or drainage. ENT: No nasal bleeding or discharge. Mucous membranes pink and moist. NECK: Trachea midline. No JVD. CARDIOVASCULAR: Regular rate and rhythm. RESPIRATORY: No accessory muscle use. Clear to auscultation. Breath sounds equal bilaterally. GASTROINTESTINAL: Abdomen soft, non-tender, nondistended. Hepatic and splenic margins not palpable. MUSCULOSKELETAL: Extremities without clubbing, cyanosis, or edema. No obvious deformities. NEUROLOGICAL: Awake and alert. No obvious cranial nerve deficits. Motor grossly within normal limits. Five out of 5 muscle strength in the arms and legs. Normal speech....GCS 14/15, FOLLOWS COMMANDS WELL BUT PER FAMILY HE IS CONFUSED AND NOT HIS NORMAL SELF, USUALLY SHARP AND NOT FORGETFUL PSYCHIATRIC: Appropriate mood and affect; insight and judgment normal. Data Data Last Documented VS Vital Signs Date Time Temp Pulse Resp B/P Pulse Ox O2 Delivery O2 Flow Rate FiO2 03/09/17 14:03 98.4 89 15 120/73 95 Orders Electrocardiogram (03/09/17 14:56) Ammonia (03/09/17 14:56) Complete Blood Count With Diff (03/09/17 14:56) Comprehensive Metabolic Panel (03/09/17 14:56) Prothrombin Time / Inr (Pt) (03/09/17 14:56) Act Partial Throm Time (Ptt) (03/09/17 14:56) Blood Glucose (03/09/17 14:56) Urinalysis - C+S If Indicated (03/09/17 15:21) Chest, Single Ap (03/09/17 15:21) Ct Brain W/O Iv Contrast(Rout) (03/09/17 15:21) Ecg Monitoring (03/09/17 15:21) Iv Access Insert/Monitor (03/09/17 15:21) Oximetry (03/09/17 15:21) Lactulose Liq (Lactulose Liq) (03/09/17 16:30) Labs Laboratory Tests Test 03/09/17 15:12 White Blood Count 6.3 TH/MM3 Red Blood Count 4.57 MIL/MM3 Hemoglobin 10.6 GM/DL Hematocrit 33.6 % Mean Corpuscular Volume 73.4 FL Mean Corpuscular Hemoglobin 23.3 PG Mean Corpuscular Hemoglobin 31.7 % Concent Red Cell Distribution Width 26.4 % Platelet Count 157 TH/MM3 Mean Platelet Volume 9.1 FL Neutrophils (%) (Auto) 56.6 % Lymphocytes (%) (Auto) 22.6 % Monocytes (%) (Auto) 17.3 % Eosinophils (%) (Auto) 3.3 % Basophils (%) (Auto) 0.2 % Neutrophils # (Auto) 3.5 TH/MM3 Lymphocytes # (Auto) 1.4 TH/MM3 Monocytes # (Auto) 1.1 TH/MM3 Eosinophils # (Auto) 0.2 TH/MM3 Basophils # (Auto) 0.0 TH/MM3 CBC Comment AUTO DIFF Differential Comment AUTO DIFF CONFIRMED Platelet Estimate NORMAL Platelet Morphology Comment NORMAL Tear Drop Cells 1+ Ovalocytes 1+ Keratocytes OCC Prothrombin Time 12.3 SEC Prothromb Time International 1.1 RATIO Ratio Activated Partial 28.8 SEC Thromboplast Time Sodium Level 136 MEQ/L Potassium Level 5.1 MEQ/L Chloride Level 106 MEQ/L Carbon Dioxide Level 21.5 MEQ/L Anion Gap 9 MEQ/L Blood Urea Nitrogen 39 MG/DL Creatinine 1.51 MG/DL Estimat Glomerular Filtration 48 ML/MIN Rate Random Glucose 108 MG/DL Calcium Level 8.9 MG/DL Total Bilirubin 1.1 MG/DL Aspartate Amino Transf 51 U/L (AST/SGOT) Alanine Aminotransferase 43 U/L (ALT/SGPT) Alkaline Phosphatase 68 U/L Ammonia 96 MCMOL/L Total Protein 7.9 GM/DL Albumin 3.6 GM/DL [facility] Medical Decision Making Medical Screen Exam Complete: Yes Emergency Medical Condition: Yes Medical Record Reviewed: Yes Interpretation(s) NSR 62, IRBBB, NONSPEC STT CHANGES Differential Diagnosis AMS, UTI, PNA, HEPATIC ENCEPHALOPATHY Narrative Course PER PATIENT HAS BEEN MORE AND MORE CONFUSED DESPITE TAKING HIS LACTULOSE, ON EVAL CT NEG, SOME RENAL INSUFF WHICH IS CHRONIC, ANEMIA 10/30 STABLE AND BETTER THAN PREVIOUS. PATIENT WILL BE ADMITTED OBSERVATION FOR HEPATIC ENCEPHALOPATHY Physician Communication Physician Communication D/W DR HOLLINGSWORTH/JUANA FOR OBSERVATION Diagnosis Primary Impression: Hepatic encephalopathy Additional Impression: Altered mental status Qualified Code: R41.0 - Disorientation Admitting Information Admitting Physician Requests: Observation Rajeev Lopes MD March 09, 2017 15:35
[2017-03-09 15:37] LABS: HEMO FLAGS AUTO DIFF
[2017-03-09 15:42] LABS: APTT (PATIENT) 28.8 SEC (24.3-30.1); INTERNATIONAL NORMALIZED RATIO 1.1 RATIO; PROTHROMBIN TIME - PATIENT 12.3 SEC (9.8-11.6)
[2017-03-09 15:43] LABS: ALT (GPT) 43 U/L (12-78); ANION GAP 9 MEQ/L (5-15); AST (GOT) 51 U/L (15-37); BICARBONATE 21.5 MEQ/L (21.0-32.0); BLOOD UREA NITROGEN 39 MG/DL (7-18); CHLORIDE 106 MEQ/L (98-107); GLOMERULAR FILTRATION RATE 48 ML/MIN (>89); POTASSIUM 5.1 MEQ/L (3.5-5.1); SODIUM (NA) 136 MEQ/L (136-145)
[2017-03-09 15:45] LABS: ALKALINE PHOSPHATASE 68 U/L (45-117); TOTAL BILIRUBIN ADULT 1.1 MG/DL (0.2-1.0)
--- NOTE | 2017-03-09 16:01 | RADRPT ---
EXAM DATE/TIME: 03/09/2017 15:50 [facility] COMPARISON: CT BRAIN W/O CONTRAST, February 22, 2017, 13:25. INDICATIONS : Altered mental status. RADIATION DOSE: 56.77 CTDIvol (mGy) MEDICAL HISTORY : Cirrhosis. Cardiovascular disease SURGICAL HISTORY : CABG Tonsillectomy. ENCOUNTER: Initial ACUITY: 1 day PAIN SCALE: 0/10 LOCATION: cranial TECHNIQUE: Multiple contiguous axial images were obtained of the head. Using automated exposure control and adj ustment of the mA and/or kV according to patient size, radiation dose was kept as low as reasonably a chievable to obtain optimal diagnostic quality images. FINDINGS: CEREBRUM: The ventricles are normal for age. No evidence of midline shift, mass lesion, hemorrhage or acute in farction. No extra-axial fluid collections are seen. POSTERIOR FOSSA: The cerebellum and brainstem are intact. The 4th ventricle is midline. The cerebellopontine angle i s unremarkable. EXTRACRANIAL: The visualized portion of the orbits is intact. SKULL: The calvaria is intact. No evidence of skull fracture. CONCLUSION: 1. No evidence of acute intracranial pathology. No masses are identified. Andres Joyner MD on March 09, 2017 at 15:58 Board Certified Radiologist. This report was verified electronically.
[2017-03-09 16:03] LABS: KERATOCYTES OCC (NORMAL); OVALOCYTES 1+ (NORMAL); PLATELET ESTIMATE SMEAR NORMAL (NORMAL); PLATELET MORPHOLOGY NORMAL (NORMAL); TEARDROP RBCS 1+ (NORMAL)
[2017-03-09 16:04] LABS: SCAN/DIFF AUTO DIFF CONFIRMED
--- NOTE | 2017-03-09 16:04 | RADRPT ---
EXAM DATE/TIME: 03/09/2017 15:29 [facility] COMPARISON: CHEST SINGLE AP, February 22, 2017, 12:43. INDICATIONS : Dizziness today. MEDICAL HISTORY : Cirrhosis. SURGICAL HISTORY : CABG. ENCOUNTER: Initial ACUITY: 1 day PAIN SCORE: 0/10 LOCATION: Bilateral chest FINDINGS: A single view of the chest demonstrates the lungs to be symmetrically aerated without evidence of mas s, infiltrate or effusion. The cardiomediastinal contours are unremarkable. Numerous intact healed r ib fractures. Left hemidiaphragm remains elevated laterally unchanged CONCLUSION: Stable examination. Multiple healed left-sided rib fractures and median sternotomy wires without com plication. Gustavo Dillard MD on March 09, 2017 at 16:01 Board Certified Radiologist. This report was verified electronically.
[2017-03-09] MEDS ORDERED: LACTULOSE SYRUP 20 GM/30 ML CUP PO ONE (16:30)
[2017-03-09 17:08] VITALS: BP 114/63; PULSE 68; RESP 16; O2SAT 96
--- NOTE | 2017-03-09 17:42 | HHI.HP ---
[facility] Phillip Oliver MD Admission Diagnosis AMS DUE TO HEPATIC ENCEPHALOPATHY Diagnoses: Chief Complaint: CONFUSION (Stephanie Grant) Travel History International Travel<30 Days: No Contact w/Intl Traveler <30 Da: No Traveled to Known Affected Are: No (Stephanie Grant) History of Present Illness This is a 56-year-old male with significant past medical history of alcoholic liver cirrhosis, varices, GI bleed, CAD, prolonged hospitalization in 2014 after GI bleed complicated by cardiopulmonary arrest was intubated. Patient comes back to the emergency room for altered mental status. Patient was recently hospitalized from 02/22 to 02/25 for hepatic encephalopathy, had upper endoscopy with banding of varices. His ammonia level was elevated, he received lactulose and it came down. His symptoms resolved and he was discharged in stable condition. During his prior admission, it was found that patient had not been taking lactulose as directed. Today, patient's was called by neighbor who noted that the patient did not appear to be acting right. According to the , she's been making sure that he's taking lactulose as prescribed. He is on 15 mL twice a day. He's also rifaximin. When the arrived home, he did appear slightly disoriented. She called his primary care physician who instructed her to bring him to ED. patient was evaluated in emergency room, ammonia level was 96. He received 30 mL lactulose. Creatinine was noted slightly elevated, 1.51. H&H was stable, he will go into 0.6, hematocrit 33.6. Platelets 157. Imaging studies stable, no acute findings and CT of the head. Patient evaluated in emergency room, he is alert and oriented 3. He does not appear to be as disoriented as during previous admission. He denies any chest pain, no shortness of breath. Indicates he is usually having 2 stools maybe 3 a day. Has not noticed any blood in the stool, no black stools. Denies any hematemesis. is at bedside providing the rest of the information. Patient is admitted for further evaluation and treatment. (Stephanie Grant) Review of Systems ROS Limitations: Altered Mental Status Psychiatric: COMPLAINS OF: Confusion (Stephanie Grant) Past Family Social History Past Medical History Cirrhosis Prior EtOH abuse Previous blood transfusions Thrombocytopenia Coagulopathy CAD Admitted in 2014 for syncope and fall, found severely anemic, underwent EGD with banding. Postprocedure, patient went into cardiorespiratory arrest and was intubated. Patient was found with hemothorax with mediastinal shift require chest tube insertion and subsequent thoracotomy and evacuation, repeat VATS, thoracotomy, pleurodesis on 12/29/2014 Past Surgical History Chest tube insertion Left thoracotomy November 2014 s/p thoracotomy and evacuation, repeat VATS, thoracotomy, pleurodesis on 12/29 CABG x3 2013 EGD with banding 2014 S/P EGD/Colonoscopy, small varix, mod gastritis, polyp, no active bleeding 2016 Reported Medications Reported Meds & Active Scripts Active Xifaxan (Rifaximin) 550 Mg Tab 550 Mg PO BID Reported Vitamin B12 (Cyanocobalamin) 500 Mcg Tab 3,000 Mcg PO DAILY Lactulose Liq (Lactulose) 10 Gm/15 Ml Soln 15 Ml PO BID PRN Spironolactone 50 Mg Tab 50 Mg PO DAILY Temazepam 15 Mg Cap 15 Mg PO HS PRN Potassium Chloride CR (Potassium Chloride) 10 Meq Tab 20 Meq PO DAILY Hydrocodone-Acetaminophen 5-325 mg Tab 1 Tab PO Q4H PRN Potassium Gluconate 595 Mg Tab 595 Tab PO DAILY NEB Multiple Vitamin 1 Tab 1 Tab PO DAILY Omeprazole 40 Mg Cap 40 Mg PO DAILY Propranolol (Propranolol HCl) 10 Mg Tab 10 Mg PO DAILY Lasix (Furosemide) 40 Mg Tab 40 Mg PO DAILY (Stephanie Grant) Allergies: Coded Allergies: No Known Allergies (Unverified , 02/22/17) Active Ordered Medications Inpatient Medications Cyanocobalamin (Vitamin B12) 3,000 mcg DAILY PO ; Start 03/10/17 at 09:00; Status UNV Furosemide (Lasix) 40 mg DAILY PO ; Start 03/10/17 at 09:00; Status UNV Lactulose (Lactulose Liq) 15 ml BID PRN PO Nutritional Supplement; Start at 17:45; Status UNV Naloxone HCl (Narcan Inj) 0.4 mg UNSCH PRN IV SEE LABEL COMMENTS; Start at 17:45; Status UNV Non-Formulary Medication 40 mg DAILY PO ; Start 03/10/17 at 09:00; Status UNV Ondansetron HCl (Zofran Inj) 4 mg Q6H PRN IVP NAUSEA OR VOMITING; Start at 17:45; Status UNV Potassium Chloride (KCl) 20 meq DAILY PO ; Start 03/10/17 at 09:00; Status UNV Propranolol HCl (Inderal) 10 mg DAILY PO ; Start 03/10/17 at 09:00; Status UNV Rifaximin (Xifaxan) 550 mg BID PO ; Start 03/09/17 at 21:00; Status UNV Sodium Chloride (NS Flush) 2 ml BID IV FLUSH ; Start 03/09/17 at 21:00; Status UNV Spironolactone (Aldactone) 50 mg DAILY PO ; Start 03/10/17 at 09:00; Status UNV Family History Father and brother positive for CAD and IA Social History , now retired. Quit drinking 3 years ago. Quit smoking 2013. No illegal drug use. (Stephanie Grant) Physical Exam Vital Signs Vital Signs Date Time Temp Pulse Resp B/P Pulse Ox O2 Delivery O2 Flow Rate FiO2 03/09/17 17:08 68 16 114/63 96 Room Air 03/09/17 14:03 98.4 89 15 120/73 95 Physical Exam GENERAL: This is a well-nourished, well-developed patient, in no apparent distress. SKIN: No rashes, ecchymoses or lesions. Cool and dry. HEAD: Atraumatic. Normocephalic. No temporal or scalp tenderness. EYES: Pupils equal round and reactive. Extraocular motions intact. No scleral icterus. No injection or drainage. ENT: Nose without bleeding, purulent drainage or septal hematoma. Throat without erythema, tonsillar hypertrophy or exudate. Uvula midline. Airway patent. NECK: Trachea midline. No JVD or lymphadenopathy. Supple, nontender, no meningeal signs. CARDIOVASCULAR: Regular rate and rhythm without murmurs, gallops, or rubs. RESPIRATORY: Clear to auscultation. Breath sounds equal bilaterally. No wheezes , rales, or rhonchi. GASTROINTESTINAL: Abdomen soft, non-tender, nondistended. No hepato-splenomegaly , or palpable masses. No guarding. MUSCULOSKELETAL: Extremities without clubbing, cyanosis, or edema. No joint tenderness, effusion, or edema noted. No calf tenderness. Negative Homans sign bilaterally. NEUROLOGICAL: Awake alert oriented 3. No focal deficits. Laboratory Laboratory Tests Test 03/09/17 15:12 White Blood Count 6.3 Red Blood Count 4.57 Hemoglobin 10.6 Hematocrit 33.6 Mean Corpuscular Volume 73.4 Mean Corpuscular Hemoglobin 23.3 Mean Corpuscular Hemoglobin 31.7 Concent Red Cell Distribution Width 26.4 Platelet Count 157 Mean Platelet Volume 9.1 Neutrophils (%) (Auto) 56.6 Lymphocytes (%) (Auto) 22.6 Monocytes (%) (Auto) 17.3 Eosinophils (%) (Auto) 3.3 Basophils (%) (Auto) 0.2 Neutrophils # (Auto) 3.5 Lymphocytes # (Auto) 1.4 Monocytes # (Auto) 1.1 Eosinophils # (Auto) 0.2 Basophils # (Auto) 0.0 CBC Comment AUTO DIFF Differential Comment AUTO DIFF CONFIRMED Platelet Estimate NORMAL Platelet Morphology Comment NORMAL Tear Drop Cells 1+ Ovalocytes 1+ Keratocytes OCC Prothrombin Time 12.3 Prothromb Time International 1.1 Ratio Activated Partial 28.8 Thromboplast Time Sodium Level 136 Potassium Level 5.1 Chloride Level 106 Carbon Dioxide Level 21.5 Anion Gap 9 Blood Urea Nitrogen 39 Creatinine 1.51 Estimat Glomerular Filtration 48 Rate Random Glucose 108 Calcium Level 8.9 Total Bilirubin 1.1 Aspartate Amino Transf 51 (AST/SGOT) Alanine Aminotransferase 43 (ALT/SGPT) Alkaline Phosphatase 68 Ammonia 96 Total Protein 7.9 Albumin 3.6 (Stephanie Grant) Result Diagram: 03/09/17 1512 03/09/17 1512 Imaging Last Impressions Head CT 03/09/17 1521 Signed Impressions: Service Date/Time: February 15:50 - CONCLUSION: 1. No evidence of acute intracranial pathology. No masses are identified. Andres Joyner MD Chest X-Ray 03/09/17 1521 Signed Impressions: Service Date/Time: February 15:29 - CONCLUSION: Stable examination. Multiple healed left-sided rib fractures and median sternotomy wires without complication. Gustavo Dillard MD (Stephanie Grant) Assessment and Plan Problem List: (1) Altered mental status (2) Hepatic encephalopathy (3) Thrombocytopenia (4) CAD (coronary artery disease) (5) Cirrhosis Assessment and Plan 56-year-old male with history of prior alcohol abuse, alcoholic cirrhosis with previous GI bleed and upper endoscopy with variceal banding. Presented to the emergency room with altered mental status, disoriented. Was recently admitted with hepatic encephalopathy and anemia, underwent GI workup and found with varices. Patient again noted with elevated ammonia level, 96. Indicates he has been compliant with lactulose. Hepatic encephalopathy, secondary to cirrhosis of liver, ammonia level 96 -Continue with neuro checks Increase lactulose to 30 mL's by mouth 3 times a day Repeat ammonia level in the morning Rifaximin 550 mg by mouth twice a day -Continue with Aldactone 50mg by mouth daily -Continue with propanolol 10 mg by mouth daily Anemia, stable, recently admitted with GI bleed with varices underwent banding. Monitor CBC Monitor for any rectal bleeding, hematemesis Acute kidney injury -Continue with cautious hydration, normal saline at 42 an hour Follow BMP in the morning History of Thrombocytopenia, platelets stable, 152 Avoid any anticoagulants Monitor platelets Monitor for bleeding Coronary artery disease and prior CABG. Patient denies any chest pain, no shortness of breath. Continue to monitor -Continue with medical management Home medications reviewed, initiated as indicated SCDs for DVT prophylaxis, avoid anticoagulation due anemia, thrombocytopenia Plan of care has been discussed with the patient and his , RN and attending. Further management of the patient will be dependent on the hospital course This patient was seen by myself and Dr. Goldstein, this H&P is written on his behalf (Stephanie Grant) Assessment and Plan pt evaluation was done as above chart was reviewed plan of care was wiliam cond was guarded (Milad Goldstein MD) Problem Qualifiers (1) Altered mental status: Qualified Code: R41.0 - Disorientation (2) CAD (coronary artery disease): Qualified Code: I25.10 - Coronary artery disease involving [place] coronary artery of [place] heart without angina pectoris (3) Cirrhosis: Qualified Code: K70.30 - Alcoholic cirrhosis of liver without ascites Stephanie Grant March 09, 2017 17:42 Milad Goldstein MD March 10, 2017 08:18
[2017-03-09] MEDS ORDERED: LACTULOSE SYRUP 20 GM/30 ML CUP PO PRN (17:45)
[2017-03-09] MEDS ORDERED: NALOXONE HCL 0.4 MG/ML AMP IV PRN (17:45)
[2017-03-09] MEDS ORDERED: SODIUM CHLORIDE 0.9% FLUSH 10 ML FLUSH IV FLUSH PRN (17:45)
[2017-03-09] MEDS ORDERED: ONDANSETRON HCL 4 MG/2 ML VIAL IVP PRN (17:45)
[2017-03-09 17:57] VITALS: O2SAT 98
[2017-03-09] MEDS ORDERED: SODIUM CHLOR 0.9% 1000 ML INJ 1,000 ML IV SCH (18:15)
[2017-03-09 19:22] VITALS: BP 113/70; PULSE 65; RESP 16; O2SAT 98
[2017-03-09] MEDS: SODIUM CHLORIDE 0.9% FLUSH 10 ML FLUSH IV FLUSH SCH (22:00)
[2017-03-09 22:10] VITALS: BP 113/67; PULSE 68; RESP 19; TEMP 97.4; O2SAT 97
[2017-03-09] MEDS: RIFAXIMIN 550 MG TAB PO SCH (22:15)
[2017-03-10 04:05] VITALS: BP 114/62; PULSE 65; RESP 20; TEMP 98.2; O2SAT 96
[2017-03-10 07:20] VITALS: BP 113/59; PULSE 66; RESP 20; TEMP 96.9; O2SAT 97
--- NOTE | 2017-03-10 08:02 | HHI.PR ---
Subjective Remarks awake, alert oriented x 3 no abd. pain had one bm overnight no abd. pain anxious to go home Objective Objective Results - Vital Signs Date Time Temp Pulse Resp B/P Pulse Ox O2 Delivery O2 Flow Rate FiO2 03/10/17 07:20 96.9 66 20 113/59 97 03/10/17 04:05 98.2 65 20 114/62 96 03/09/17 22:10 97.4 68 19 113/67 97 03/09/17 19:23 64 18 98 Room Air 03/09/17 19:22 65 16 113/70 98 Room Air 03/09/17 17:57 98 Room Air 03/09/17 17:08 68 16 114/63 96 Room Air 03/09/17 14:03 98.4 89 15 120/73 95 Result Diagram: 03/09/17 1512 03/09/17 1512 Imaging Last Impressions Head CT 03/09/17 1521 Signed Impressions: Service Date/Time: February 15:50 - CONCLUSION: 1. No evidence of acute intracranial pathology. No masses are identified. Andres Joyner MD Chest X-Ray 03/09/17 1521 Signed Impressions: Service Date/Time: February 15:29 - CONCLUSION: Stable examination. Multiple healed left-sided rib fractures and median sternotomy wires without complication. Gustavo Dillard MD Other Results Laboratory Tests Test 03/09/17 15:12 White Blood Count 6.3 Red Blood Count 4.57 Hemoglobin 10.6 Hematocrit 33.6 Mean Corpuscular Volume 73.4 Mean Corpuscular Hemoglobin 23.3 Mean Corpuscular Hemoglobin 31.7 Concent Red Cell Distribution Width 26.4 Platelet Count 157 Mean Platelet Volume 9.1 Neutrophils (%) (Auto) 56.6 Lymphocytes (%) (Auto) 22.6 Monocytes (%) (Auto) 17.3 Eosinophils (%) (Auto) 3.3 Basophils (%) (Auto) 0.2 Neutrophils # (Auto) 3.5 Lymphocytes # (Auto) 1.4 Monocytes # (Auto) 1.1 Eosinophils # (Auto) 0.2 Basophils # (Auto) 0.0 CBC Comment AUTO DIFF Differential Comment AUTO DIFF CONFIRMED Platelet Estimate NORMAL Platelet Morphology Comment NORMAL Tear Drop Cells 1+ Ovalocytes 1+ Keratocytes OCC Prothrombin Time 12.3 Prothromb Time International 1.1 Ratio Activated Partial 28.8 Thromboplast Time Sodium Level 136 Potassium Level 5.1 Chloride Level 106 Carbon Dioxide Level 21.5 Anion Gap 9 Blood Urea Nitrogen 39 Creatinine 1.51 Estimat Glomerular Filtration 48 Rate Random Glucose 108 Calcium Level 8.9 Total Bilirubin 1.1 Aspartate Amino Transf 51 (AST/SGOT) Alanine Aminotransferase 43 (ALT/SGPT) Alkaline Phosphatase 68 Ammonia 96 Total Protein 7.9 Albumin 3.6 ROS General: No: Fatigue, Weakness HEENT: No: Sore Throat, Dysphagia Cardiac: No: Chest Pain, Edema, Palpitations Pulmonary: No: Cough, SOB, Wheezing GI: No: Abdominal Pain, BM, Diarrhea, N/V /[employer]: No: Dysuria, Urgency Neuro/MS: No: Lightheaded, Confusion Psych: No: Anxiety, Depression Skin: No: Itching, Rash Physical Exam Physical Exam GENERAL: This is a well-nourished, well-developed patient, in no apparent distress. SKIN: No rashes, ecchymoses or lesions. Cool and dry. HEAD: Atraumatic. Normocephalic. No temporal or scalp tenderness. EYES: Pupils equal round and reactive. Extraocular motions intact. No scleral icterus. No injection or drainage. ENT: Nose without bleeding, purulent drainage or septal hematoma. Throat without erythema, tonsillar hypertrophy or exudate. Uvula midline. Airway patent. NECK: Trachea midline. No JVD or lymphadenopathy. Supple, nontender, no meningeal signs. CARDIOVASCULAR: Regular rate and rhythm without murmurs, gallops, or rubs. RESPIRATORY: Clear to auscultation. Breath sounds equal bilaterally. No wheezes , rales, or rhonchi. GASTROINTESTINAL: Abdomen soft, non-tender, nondistended. No hepato-splenomegaly , or palpable masses. No guarding. MUSCULOSKELETAL: Extremities without clubbing, cyanosis, or edema. No joint tenderness, effusion, or edema noted. No calf tenderness. Negative Homans sign bilaterally. NEUROLOGICAL: Awake alert oriented 3. No focal deficits. Urinary Catheter: No Vascular Central Line Catheter: No A/P Diagnosis: (1) Altered mental status (2) Hepatic encephalopathy (3) Thrombocytopenia (4) CAD (coronary artery disease) (5) Cirrhosis Assessment and Plan 56-year-old male with history of prior alcohol abuse, alcoholic cirrhosis with previous GI bleed and upper endoscopy with variceal banding. Presented to the emergency room with altered mental status, disoriented. Was recently admitted with hepatic encephalopathy and anemia, underwent GI workup and found with varices. Patient again noted with elevated ammonia level, 96. Indicates he has been compliant with lactulose. Hepatic encephalopathy, secondary to cirrhosis of liver, ammonia level 96 -Continue with neuro checks Increase lactulose to 30 mL's by mouth 3 times a day-will discharge on 30 mg BID Repeat ammonia level in the morning-pending Rifaximin 550 mg by mouth twice a day -Continue with Aldactone 50mg by mouth daily -Continue with propanolol 10 mg by mouth daily Anemia, stable, recently admitted with GI bleed with varices underwent banding. Monitor CBC Monitor for any rectal bleeding, hematemesis Acute kidney injury -Continue with cautious hydration, normal saline at 42 an hour Follow BMP in the morning-pending History of Thrombocytopenia, platelets stable, 152 Avoid any anticoagulants Monitor platelets Monitor for bleeding Coronary artery disease and prior CABG. Patient denies any chest pain, no shortness of breath. Continue to monitor -Continue with medical management SCDs for DVT prophylaxis, avoid anticoagulation due anemia, thrombocytopenia labs pending, will have nurse call with results poss dc today if ammonia improving D/W RN D/W Dr. Goldtsein D/W pt. This patient was seen by myself and Dr. Goldstein, this note is written on his behalf Problem Qualifiers (1) Altered mental status: Qualified Code: R41.0 - Disorientation (2) CAD (coronary artery disease): Qualified Code: I25.10 - Coronary artery disease involving [place] coronary artery of [place] heart without angina pectoris (3) Cirrhosis: Qualified Code: K70.30 - Alcoholic cirrhosis of liver without ascites Stephanie Grant March 10, 2017 08:02
[2017-03-10] MEDS ORDERED: LACT10SO PO (08:50)
--- NOTE | 2017-03-10 08:51 | HHI.DCPOC ---
Discharge Care Plan Diagnosis: (1) Hepatic encephalopathy Your Health Problems Are: Anxiety Difficulty with ADL Goals to Promote Your Health * To prevent worsening of your condition and complications * To maintain your health at the optimal level Directions to Meet Your Goals Take your medications as prescribed Follow your dietary instruction Follow activity as directed Keep your appointments as scheduled Take your immunizations and boosters as scheduled If your symptoms worsen call your PCP, if no PCP go to Urgent Care Center or Emergency Room Smoking is Dangerous to Your Health. Avoid second hand smoke Call the 24-hour hour crisis hotline for domestic abuse at Stephanie Grant. [facility] March 10, 2017 08:51
[2017-03-10] MEDS: RIFAXIMIN 550 MG TAB PO SCH ×2 (09:00→20:14)
[2017-03-10] MEDS: SODIUM CHLORIDE 0.9% FLUSH 10 ML FLUSH IV FLUSH SCH ×2 (09:00→20:14)
[2017-03-10] MEDS: SPIRONOLACTONE 50 MG TAB PO SCH (09:09)
[2017-03-10] MEDS: PANTOPRAZOLE SOD 40 MG DELAYED RELEASE TAB PO SCH (09:09)
[2017-03-10] MEDS: POTASSIUM CHLORIDE 20 MEQ CONTROLLED RELEASE TAB PO SCH (09:09)
[2017-03-10] MEDS: PROPRANOLOL HCL 10 MG TAB PO SCH (09:09)
[2017-03-10] MEDS: FUROSEMIDE 40 MG TAB PO SCH (09:09)
[2017-03-10] MEDS: CYANOCOBALAMIN 1,000 MCG TAB PO SCH (09:10)
[2017-03-10] MEDS: LACTULOSE SYRUP 20 GM/30 ML CUP PO SCH ×3 (09:10→18:12)
[2017-03-10 10:15] LABS: AUTOMATED NEUTROPHIL # 2.7 TH/MM3 (1.8-7.7); BASOPHIL % 0.5 % (0.0-2.0); EOSINOPHIL # 0.2 TH/MM3 (0-0.4); EOSINOPHIL % 4.8 % (0.0-4.0); HEMATOCRIT 30.9 % (39.0-51.0); LYMPH % 24.1 % (9.0-44.0); MEAN CELL VOLUME 71.8 FL (80.0-100.0); MEAN CORPUSCULAR HEMOGLOBIN 23.1 PG (27.0-34.0); MEAN CORPUSCULAR HGB CONC 32.2 % (32.0-36.0); MONO % 9.2 % (0.0-8.0); NEUT % 61.4 % (16.0-70.0); PLATELET COUNT 123 TH/MM3 (150-450); RED CELL DISTRIBUTION WIDTH 25.5 % (11.6-17.2); WHITE BLOOD COUNT 4.3 TH/MM3 (4.0-11.0)
[2017-03-10 10:28] LABS: HEMO FLAGS AUTO DIFF
[2017-03-10 10:42] LABS: BICARBONATE 21.1 MEQ/L (21.0-32.0); POTASSIUM 4.3 MEQ/L (3.5-5.1)
[2017-03-10 11:09] LABS: OVALOCYTES 1+ (NORMAL); PLATELET ESTIMATE SMEAR LOW (NORMAL); PLATELET MORPHOLOGY NORMAL (NORMAL); SCAN/DIFF AUTO DIFF CONFIRMED
[2017-03-10 11:20] VITALS: BP 126/70; PULSE 57; RESP 19; TEMP 97.5; O2SAT 100
[2017-03-10 14:56] VITALS: BP 109/63; PULSE 57; RESP 17; TEMP 98.2; O2SAT 100
[2017-03-10 19:01] VITALS: BP 115/69; PULSE 60; RESP 19; TEMP 98.2; O2SAT 100
--- NOTE | 2017-03-10 21:42 | EKG ---
Date Performed: 03/09/2017 Time Performed: 16:26:26 PTAGE: 56 years EKG: Sinus rhythm INCOMPLETE RIGHT BUNDLE BRANCH BLOCK MINIMAL VOLTAGE CRITERIA FOR LVH, CONSIDER NORMAL VARIANT PROLO NGED QT INTERVAL ABNORMAL ECG PREVIOUS TRACING : 02/22/2017 11.51 Compared to prior tracing no significant change DOCTOR: Brendan Lima Interpretating Date/Time 03/10/2017 21:42:12
[2017-03-10 23:45] VITALS: BP 129/61; PULSE 63; RESP 20; TEMP 98.4; O2SAT 99
[2017-03-11 03:35] VITALS: BP 125/60; PULSE 62; RESP 18; TEMP 98.6; O2SAT 94
[2017-03-11 07:54] VITALS: BP 119/67; PULSE 58; RESP 18; TEMP 98; O2SAT 98
[2017-03-11] MEDS: LACTULOSE SYRUP 20 GM/30 ML CUP PO SCH (08:16)
[2017-03-11] MEDS: RIFAXIMIN 550 MG TAB PO SCH (08:16)
[2017-03-11] MEDS: PANTOPRAZOLE SOD 40 MG DELAYED RELEASE TAB PO SCH (08:17)
[2017-03-11] MEDS: PROPRANOLOL HCL 10 MG TAB PO SCH (08:17)
[2017-03-11] MEDS: SODIUM CHLORIDE 0.9% FLUSH 10 ML FLUSH IV FLUSH SCH (08:17)
[2017-03-11] MEDS: FUROSEMIDE 40 MG TAB PO SCH (08:17)
[2017-03-11] MEDS: POTASSIUM CHLORIDE 20 MEQ CONTROLLED RELEASE TAB PO SCH (08:17)
[2017-03-11] MEDS: CYANOCOBALAMIN 1,000 MCG TAB PO SCH (08:17)
[2017-03-11] MEDS: SPIRONOLACTONE 50 MG TAB PO SCH (08:17)
--- NOTE | 2017-03-11 08:43 | HHI.PR ---
Subjective Remarks ambulating in hallway oriented x 3 asking about ammonia level had 2 bms yesterday eating okay anxious to home Objective Objective Results - Vital Signs Date Time Temp Pulse Resp B/P Pulse Ox O2 Delivery O2 Flow Rate FiO2 03/11/17 07:54 98.0 58 18 119/67 98 03/11/17 03:35 98.6 62 18 125/60 94 03/10/17 23:45 98.4 63 20 129/61 99 03/10/17 19:01 98.2 60 19 115/69 100 03/10/17 14:56 98.2 57 17 109/63 100 03/10/17 11:20 97.5 57 19 126/70 100 I/O 03/10/17 03/10/17 03/10/17 03/11/17 03/11/17 03/11/17 07:00 15:00 23:00 07:00 15:00 23:00 Intake Total 1025 ml Balance 1025 ml Intake Oral 725 ml IV Total 300 ml # Voids 7 # Bowel Movements 1 Result Diagram: 03/10/17 0945 03/10/17 0945 Imaging Last Impressions Head CT 03/09/17 1521 Signed Impressions: Service Date/Time: February 15:50 - CONCLUSION: 1. No evidence of acute intracranial pathology. No masses are identified. Andres Joyner MD Chest X-Ray 03/09/17 1521 Signed Impressions: Service Date/Time: February 15:29 - CONCLUSION: Stable examination. Multiple healed left-sided rib fractures and median sternotomy wires without complication. Gustavo Dillard MD Other Results Laboratory Tests Test 03/10/17 03/10/17 03/11/17 09:25 09:45 03:55 Ammonia 93 112 White Blood Count 4.3 Red Blood Count 4.30 Hemoglobin 9.9 Hematocrit 30.9 Mean Corpuscular Volume 71.8 Mean Corpuscular Hemoglobin 23.1 Mean Corpuscular Hemoglobin 32.2 Concent Red Cell Distribution Width 25.5 Platelet Count 123 Mean Platelet Volume 8.6 Neutrophils (%) (Auto) 61.4 Lymphocytes (%) (Auto) 24.1 Monocytes (%) (Auto) 9.2 Eosinophils (%) (Auto) 4.8 Basophils (%) (Auto) 0.5 Neutrophils # (Auto) 2.7 Lymphocytes # (Auto) 1.0 Monocytes # (Auto) 0.4 Eosinophils # (Auto) 0.2 Basophils # (Auto) 0.0 CBC Comment AUTO DIFF Differential Comment AUTO DIFF CONFIRMED Platelet Estimate LOW Platelet Morphology Comment NORMAL Ovalocytes 1+ Sodium Level 138 Potassium Level 4.3 Chloride Level 108 Carbon Dioxide Level 21.1 Anion Gap 9 Blood Urea Nitrogen 27 Creatinine 1.11 Estimat Glomerular Filtration 68 Rate Random Glucose 177 Calcium Level 9.1 ROS General: No: Fatigue, Weakness HEENT: No: Sore Throat, Dysphagia Cardiac: No: Chest Pain, Edema, Palpitations Pulmonary: No: Cough, SOB, Wheezing GI: No: Abdominal Pain, BM, Diarrhea, N/V /APPLICATIONS TESTER: No: Dysuria, Urgency Neuro/MS: No: Lightheaded, Confusion Psych: No: Anxiety, Depression Skin: No: Itching, Rash Physical Exam Physical Exam GENERAL: This is a well-nourished, well-developed patient, in no apparent distress. SKIN: No rashes, ecchymoses or lesions. Cool and dry. HEAD: Atraumatic. Normocephalic. No temporal or scalp tenderness. EYES: Pupils equal round and reactive. Extraocular motions intact. No scleral icterus. No injection or drainage. ENT: Nose without bleeding, purulent drainage or septal hematoma. Throat without erythema, tonsillar hypertrophy or exudate. Uvula midline. Airway patent. NECK: Trachea midline. No JVD or lymphadenopathy. Supple, nontender, no meningeal signs. CARDIOVASCULAR: Regular rate and rhythm without murmurs, gallops, or rubs. RESPIRATORY: Clear to auscultation. Breath sounds equal bilaterally. No wheezes , rales, or rhonchi. GASTROINTESTINAL: Abdomen soft, non-tender, nondistended. No hepato-splenomegaly , or palpable masses. No guarding. MUSCULOSKELETAL: Extremities without clubbing, cyanosis, or edema. No joint tenderness, effusion, or edema noted. No calf tenderness. Negative Homans sign bilaterally. NEUROLOGICAL: Awake alert oriented 3. No focal deficits. Urinary Catheter: No Vascular Central Line Catheter: No A/P Diagnosis: (1) Altered mental status (2) Hepatic encephalopathy (3) Thrombocytopenia (4) CAD (coronary artery disease) (5) Cirrhosis Assessment and Plan 56-year-old male with history of prior alcohol abuse, alcoholic cirrhosis with previous GI bleed and upper endoscopy with variceal banding. Presented to the emergency room with altered mental status, disoriented. Was recently admitted with hepatic encephalopathy and anemia, underwent GI workup and found with varices. Patient again noted with elevated ammonia level, 96. Indicates he has been compliant with lactulose. Hepatic encephalopathy, secondary to cirrhosis of liver, elevated ammonia level -Continue with neuro checks Increase lactulose to 30 mL's by mouth 3 times a day-will discharge on 30 mg BID Rifaximin 550 mg by mouth twice a day -Continue with Aldactone 50mg by mouth daily -Continue with propanolol 10 mg by mouth daily -ammonia level 112, although pt. now back to baseline, oriented x 3, more sharp in his thinking. Having at least 2 BMs will cleared for dc and give ammonia lab slip in 3 days. Needs to f/u with GI next week Anemia, stable, recently admitted with GI bleed with varices underwent banding. Monitor CBC Monitor for any rectal bleeding, hematemesis Acute kidney injury -Continue with cautious hydration, normal saline at 42 an hour -stable, dc IVF History of Thrombocytopenia, platelets 123 Avoid any anticoagulants Monitor platelets Monitor for bleeding Coronary artery disease and prior CABG. Patient denies any chest pain, no shortness of breath. Continue to monitor -Continue with medical management SCDs for DVT prophylaxis, avoid anticoagulation due anemia, thrombocytopenia stable for dc Discharge home today F/U GI, PCP have ammonia level done in 3 days Diet-heart healthy Activity-no driving, avoid operating heavy equipment. Any change in mental status, needs to return to hospital. D/W RN D/W Dr. Goldstein D/W pt. This patient was seen by myself and Dr. Goldstein, this note is written on his behalf Discharge Planning 40 Problem Qualifiers (1) Altered mental status: Qualified Code: R41.0 - Disorientation (2) CAD (coronary artery disease): Qualified Code: I25.10 - Coronary artery disease involving [place] coronary artery of [place] heart without angina pectoris (3) Cirrhosis: Qualified Code: K70.30 - Alcoholic cirrhosis of liver without ascites Stephanie Grant March 11, 2017 08:43
--- NOTE | 2017-03-11 08:44 | HHI.DS ---
Discharge Summary Admission Date March 09, 2017 at 17:27 Discharge Date: March 11, 2017 Admitting Diagnosis AMS DUE TO HEPATIC ENCEPHALOPATHY (1) Altered mental status (2) Hepatic encephalopathy (3) Thrombocytopenia (4) CAD (coronary artery disease) (5) Cirrhosis CBC/BMP: 03/10/17 0945 03/10/17 0945 Significant Findings Laboratory Tests Test 03/09/17 03/10/17 03/10/17 03/11/17 15:12 09:25 09:45 03:55 Hemoglobin 10.6 GM/DL 9.9 GM/DL (13.0-17.0) (13.0-17.0) Hematocrit 33.6 % 30.9 % (39.0-51.0) (39.0-51.0) Mean Corpuscular Volume 73.4 FL 71.8 FL (80.0-100.0) (80.0-100.0) Mean Corpuscular Hemoglobin 23.3 PG 23.1 PG (27.0-34.0) (27.0-34.0) Mean Corpuscular Hemoglobin 31.7 % Concent (32.0-36.0) Red Cell Distribution Width 26.4 % 25.5 % (11.6-17.2) (11.6-17.2) Monocytes (%) (Auto) 17.3 % 9.2 % (0.0-8.0) (0.0-8.0) Monocytes # (Auto) 1.1 TH/MM3 (0-0.9) Tear Drop Cells 1+ (NORMAL) Ovalocytes 1+ (NORMAL) 1+ (NORMAL) Prothrombin Time 12.3 SEC (9.8-11.6) Blood Urea Nitrogen 39 MG/DL (7-18) 27 MG/DL (7-18) Creatinine 1.51 MG/DL (0.60-1.30) Estimat Glomerular Filtration 48 ML/MIN (>89) 68 ML/MIN (>89) Rate Random Glucose 108 MG/DL 177 MG/DL (74-106) (74-106) Total Bilirubin 1.1 MG/DL (0.2-1.0) Aspartate Amino Transf 51 U/L (15-37) (AST/SGOT) Ammonia 96 MCMOL/L 93 MCMOL/L 112 MCMOL/L (11-32) (11-32) (11-32) Red Blood Count 4.30 MIL/MM3 (4.50-5.90) Platelet Count 123 TH/MM3 (150-450) Eosinophils (%) (Auto) 4.8 % (0.0-4.0) Platelet Estimate LOW (NORMAL) Chloride Level 108 MEQ/L (98-107) Imaging Last Impressions Head CT 03/09/17 1521 Signed Impressions: Service Date/Time: , March 09, 2017 15:50 - CONCLUSION: 1. No evidence of acute intracranial pathology. No masses are identified. Andres Joyner MD Chest X-Ray 03/09/17 1521 Signed Impressions: Service Date/Time: , March 09, 2017 15:29 - CONCLUSION: Stable examination. Multiple healed left-sided rib fractures and median sternotomy wires without complication. Gustavo Dillard MD Hospital Course This is a 56-year-old male with significant past medical history of alcoholic liver cirrhosis, varices, GI bleed, CAD, prolonged hospitalization in 2014 after GI bleed complicated by cardiopulmonary arrest was intubated. Patient comes back to the emergency room for altered mental status. Patient was recently hospitalized from 02/22 to 02/25 for hepatic encephalopathy, had upper endoscopy with banding of varices. His ammonia level was elevated, he received lactulose and it came down. His symptoms resolved and he was discharged in stable condition. During his prior admission, it was found that patient had not been taking lactulose as directed. The day of admission, patient's was called by neighbor who noted that the patient did not appear to be acting right. According to the , she's been making sure that he's taking lactulose as prescribed. He is on 15 mL twice a day. He's also rifaximin. When the arrived home, he did appear slightly disoriented. She called his primary care physician who instructed her to bring him to ED. patient was evaluated in emergency room, ammonia level was 96. He received 30 mL lactulose. Creatinine was noted slightly elevated, 1.51. H&H was stable. Platelets 157. Imaging studies stable, no acute findings and CT of the head. Patient evaluated in emergency room, he was alert and oriented 3. He does not appear to be as disoriented as during previous admission. He denied any chest pain, no shortness of breath. Indicates he is usually having 2 stools maybe 3 a day. Has not noticed any blood in the stool, no black stools. Denied any hematemesis. was at bedside providing the rest of the information. Patient was admitted for further evaluation and treatment for: (1) Altered mental status (2) Hepatic encephalopathy (3) Thrombocytopenia (4) CAD (coronary artery disease) (5) Cirrhosis During the course of the hospitalization, the following events took place: 56-year-old male with history of prior alcohol abuse, alcoholic cirrhosis with previous GI bleed and upper endoscopy with variceal banding. Presented to the emergency room with altered mental status, disoriented. Was recently admitted with hepatic encephalopathy and anemia, underwent GI workup and found with varices. Patient again noted with elevated ammonia level, 96. Indicated he has been compliant with lactulose. Hepatic encephalopathy, secondary to cirrhosis of liver, elevated ammonia level -ordered neuro checks Increase lactulose to 30 mL's by mouth 3 times a day- discharged on 30 mg BID Rifaximin 550 mg by mouth twice a day -Continue with Aldactone 50mg by mouth daily -Continue with propanolol 10 mg by mouth daily -ammonia level was followed. Remained elevated, ammonia level 112, although pt. now back to baseline, oriented x 3, more sharp in his thinking. Having at least 2 BMs cleared for dc and gave ammonia lab slip in 3 days. Needs to f/u with GI next week Anemia, stable, recently admitted with GI bleed with varices underwent banding. Monitored CBC Monitored for any rectal bleeding, hematemesis -Remained stable. Acute kidney injury -Put on IVF -renal function improved. History of Thrombocytopenia, platelets 123 Avoided any anticoagulants Monitored platelets Monitored for bleeding -stable Coronary artery disease and prior CABG. Patient denies any chest pain, no shortness of breath. Continued to monitor -Continued with medical management SCDs for DVT prophylaxis, avoid anticoagulation due anemia, thrombocytopenia stable for dc Discharge home Instructed to: F/U GI, PCP have ammonia level done in 3 days Diet-heart healthy Activity-no driving, avoid operating heavy equipment. Any change in mental status, needs to return to hospital. Pt Condition on Discharge: Stable Discharge Disposition: Discharge Home Discharge Instructions DIET: Follow Instructions for: Heart Healthy Diet Activities you can perform: Weight Bearing as Selena Other Activity Instructions: no driving, do not operate heavy machinery Follow up Referrals: Gastroenterology PCP Follow-up Changed Medications: Lactulose Liq (Lactulose Liq) 10 Gm/15 Ml Soln 30 ML PO BID ELEVATED AMMONIA #180 Ref 0 ML (Changed from: 15 ML; Removed Reason ) Continued Medications: Cyanocobalamin (Vitamin B12) 500 Mcg Tab 3000 MCG PO DAILY #1 BOTTLE Furosemide (Lasix) 40 Mg Tab 40 MG PO DAILY #30 Ref 0 TAB Hydrocodone-Acetaminophen (Hydrocodone-Acetaminophen) 5-325 mg Tab 1 TAB PO Q4H PRN PAIN Ref 0 TAB Multiple Vitamin (Multiple Vitamin) 1 Tab 1 TAB PO DAILY Nutritional Supplement Ref 0 TAB Omeprazole (Omeprazole) 40 Mg Cap 40 MG PO DAILY #30 Ref 0 CAP Potassium Chloride ER (Potassium Chloride CR) 10 Meq Tab 20 MEQ PO DAILY TAB Potassium Gluconate (Potassium Gluconate) 595 Mg Tab 595 TAB PO DAILY NEB Propranolol (Propranolol) 10 Mg Tab 10 MG PO DAILY #60 Ref 0 TAB Rifaximin (Xifaxan) 550 Mg Tab 550 MG PO BID HE #60 TAB Spironolactone (Spironolactone) 50 Mg Tab 50 MG PO DAILY #30 Ref 0 TAB Temazepam (Temazepam) 15 Mg Cap 15 MG PO HS PRN INSOMNIA #30 Ref 0 CAP Stephanie Grant March 11, 2017 08:43
== END 2017-03-11 11:20 | disposition home or self-care (01) ==
LOC: NEPE 14:00 → NEDA 17:27 → NEPGCP 22:02
PROVIDERS: ADMIT Specialist; ATTEND Specialist
DX: K72.90 Hepatic failure, unspecified without coma (principal); D69.6 Thrombocytopenia, unspecified; I25.10 Atherosclerotic heart disease of native coronary artery without angina pectoris; K70.30 Alcoholic cirrhosis of liver without ascites; N17.9 Acute kidney failure, unspecified; I85.10 Secondary esophageal varices without bleeding; D64.9 Anemia, unspecified; F10.10 Alcohol abuse, uncomplicated; Z86.74 Personal history of sudden cardiac arrest; Z95.1 Presence of aortocoronary bypass graft
CPT/HCPCS: 70450; 71010; 80048; 80053; 82140; 85025; 85610; 85730; 93005; 99285; G0378; J7030

== ENCOUNTER 2017-08-10 09:59 | Day surgery (SDC) | payer OTHER ==
[2017-08-10 10:31] VITALS: BP 117/68; PULSE 55; RESP 16; TEMP 98; O2SAT 99
--- NOTE | 2017-08-10 13:23 | RADRPT ---
EXAM DATE/TIME: 08/10/2017 10:32 [facility] COMPARISON: No previous studies available for comparison. EXTERNAL COMPARISON : [facility], US ABDOMEN - UPPER LIMITED, June 19, 2017 INDICATIONS : Ascites. MEDICAL HISTORY : Gastroesophageal reflux disease. Cirrhosis. Duodenal ulcer. Fatty liver. Colon polyps. Gastritis. E sophageal varices. SURGICAL HISTORY : Tonsillectomy. CABG. Colonoscopy. Cardiac cath. Gastric antral mucosal biopsy. Polpyectomy. ENCOUNTER: Initial ACUITY: 3 weeks PAIN SCORE: 0/10 LOCATION: Abdomen. AREA EVALUATED: Quadrants FINDINGS: Imaging of the abdomen and pelvis was performed to evaluate for ascites for possible paracentesis. Ho wever, there is no free fluid identified in the abdomen or pelvis. CONCLUSION: There is no free fluid within the abdomen or pelvis. Therefore, no paracentesis was performed. Alvin Naik MD on August 10, 2017 at 13:21 Board Certified Radiologist. This report was verified electronically.
== END 2017-08-10 10:50 | disposition home or self-care (01) ==
LOC: HRAD 09:59 → HRIP 10:03 → HRAD 10:50
PROVIDERS: ATTEND Internal Medicine Gastroenterology
DX: R18.8 Other ascites (principal); K21.9 Gastro-esophageal reflux disease without esophagitis; K76.0 Fatty (change of) liver, not elsewhere classified; K74.60 Unspecified cirrhosis of liver; Z95.1 Presence of aortocoronary bypass graft; Z86.010 Personal history of colon polyps
CPT/HCPCS: 76705